=== PATIENT | male | born 1965 | race Caucasian/White ===

== ENCOUNTER 2017-11-07 18:07 | Inpatient (IN) | payer MEDICAID, OTHER ==
[~2017-11-07] VITALS: Ht 167.6 cm; Wt 114.8 kg
[2017-11-07] MEDS ORDERED: KETOROLAC TROMETH 30 MG/ML 1ML VIAL IV ONE (19:15)
[2017-11-07] MEDS ORDERED: CLINDAMYCIN 900MG IV 50 ML IV ONE (19:15)
[2017-11-07 19:39] LABS: Basophils # (auto) 0.1 uL; Basophils % (auto) 1.1 % (0.0-2.0); Eosinophils # (auto) 0.1 uL; Eosinophils % (auto) 1.1 % (0.0-7.0); Hematocrit 45.4 % (41.0-53.0); Lymphocytes # (auto) 1.3 uL; Lymphocytes % (auto) 17.7 % (10.0-50.0); Mean Corpuscular Hemoglobin 30.9 pg (28.0-32.0); Mean Corpuscular Hgb Conc. 33.1 g/dL (32.0-36.0); Mean Corpuscular Volume 93.4 fL (80.0-100.0); Monocytes # (auto) 0.9 uL; Monocytes % (auto) 12.4 % (0.0-12.0); Neutrophils # (auto) 5.1 uL; Neutrophils % (auto) 67.7 % (37.0-80.0); Nucleated Red Blood Cells % 0.1 %; Platelet Count (auto) 248 10^3/uL (140-450); Red Blood Cells 4.86 10^6/uL (4.5-5.90); Red Cell Distribution Width 14.1 % (11.8-14.3); White Blood Cell 7.6 10^3/uL (4.4-10.8)
[2017-11-07 20:00] LABS: Albumin 3.7 g/dL (3.4-5.0); BUN/Creatinine Ratio 16.7; Bilirubin, Total 1.1 mg/dL (0.2-1.0); Calcium 8.9 mg/dL (8.5-10.1); Potassium 4.5 mmol/L (3.5-5.1); Total Protein 7.9 g/dL (6.4-8.2)
[2017-11-07 21:49] LABS: Urine WBC None Seen /hpf (0 - 3)
[2017-11-07 21:54] LABS: Urine Bacteria NONE SEEN /hpf (None Seen); Urine Blood Negative /uL (Negative); Urine Specific Gravity 1.018 (1.001-1.035)
[2017-11-07] MEDS ORDERED: HYDROcodone-ACET 10/325MG TAB PO ONE (22:00)
[2017-11-07] MEDS ORDERED: ACETAMINOPHEN 325 MG TAB PO PRN (22:45)
[2017-11-07] MEDS ORDERED: TEMAZEPAM 15 MG CAP PO PRN (22:45)
[2017-11-07] MEDS ORDERED: ONDANSETRON HCL 4 MG/2 ML VIAL IV PRN (22:45)
[2017-11-08 01:06] VITALS: BP 116/76
[2017-11-08] MEDS: KETOROLAC TROMETH 30 MG/ML 1ML VIAL IV PRN ×2 (02:20→09:18)
[2017-11-08 05:42] VITALS: BP 124/86
[2017-11-08] MEDS: CLINDAMYCIN 600MG IV 50 ML IV SCH ×3 (05:42→22:14)
[2017-11-08 06:43] LABS: Basophils # (auto) 0.1 uL; Basophils % (auto) 0.9 % (0.0-2.0); Eosinophils # (auto) 0.1 uL; Eosinophils % (auto) 1.5 % (0.0-7.0); Hematocrit 41.7 % (41.0-53.0); Hemoglobin 14.2 g/dL (13.5-17.5); Lymphocytes # (auto) 1.6 uL; Mean Corpuscular Hemoglobin 31.7 pg (28.0-32.0); Mean Corpuscular Hgb Conc. 34.1 g/dL (32.0-36.0); Mean Corpuscular Volume 93.2 fL (80.0-100.0); Monocytes # (auto) 1.1 uL; Monocytes % (auto) 15.1 % (0.0-12.0); Neutrophils # (auto) 4.3 uL; Neutrophils % (auto) 60.5 % (37.0-80.0); Nucleated Red Blood Cells % 0.1 %; Platelet Count (auto) 221 10^3/uL (140-450); Red Blood Cells 4.47 10^6/uL (4.5-5.90); Red Cell Distribution Width 14.1 % (11.8-14.3); White Blood Cell 7.2 10^3/uL (4.4-10.8)
[2017-11-08 07:01] LABS: Potassium 3.9 mmol/L (3.5-5.1)
[2017-11-08 07:16] LABS: Albumin 3.1 g/dL (3.4-5.0); Calcium 8.8 mg/dL (8.5-10.1); Total Protein 7.1 g/dL (6.4-8.2)
[2017-11-08 07:30] LABS: Bilirubin, Total 1.5 mg/dL (0.2-1.0)
[2017-11-08 09:00] VITALS: BP 124/77
[2017-11-08] MEDS: FAMOTIDINE 20 MG TAB PO SCH ×2 (09:18→22:14)
[2017-11-08] MEDS: ENOXAPARIN SOD 40 MG/0.4 ML SYRINGE SC SCH (09:19)
[2017-11-08 17:00] VITALS: BP 122/74
[2017-11-08] MEDS: KETOROLAC TROMETH 30 MG/ML 1ML VIAL IV SCH (18:39)
[2017-11-08 22:00] VITALS: BP 122/81
[2017-11-08] MEDS: HYDROcodone-ACET 5/325MG TAB PO PRN (22:15)
[2017-11-09] MEDS: KETOROLAC TROMETH 30 MG/ML 1ML VIAL IV SCH ×4 (00:14→17:33)
[2017-11-09 05:00] VITALS: BP 120/75
[2017-11-09] MEDS: HYDROcodone-ACET 5/325MG TAB PO PRN ×2 (05:30→09:59)
[2017-11-09] MEDS: CLINDAMYCIN 600MG IV 50 ML IV SCH ×2 (05:46→14:34)
[2017-11-09 08:00] VITALS: BP 138/83
[2017-11-09] MEDS: ENOXAPARIN SOD 40 MG/0.4 ML SYRINGE SC SCH (09:58)
[2017-11-09] MEDS: FAMOTIDINE 20 MG TAB PO SCH (09:59)
[2017-11-09 12:00] VITALS: BP 104/59
[2017-11-09] MEDS ORDERED: GABA-339 PO (16:20)
[2017-11-09] MEDS ORDERED: HYDR-4683 PO (16:20)
[2017-11-09] MEDS ORDERED: BACL20TA PO (16:20)
[2017-11-09 17:00] VITALS: BP 122/84
[2017-11-09 17:58] VITALS: BP 122/84
[2017-11-09 18:10] VITALS: BP 122/84
== END 2017-11-09 18:30 | disposition home or self-care (01) | DRG 351 ==
LOC: ER 18:07 → OVERFLOW 18:08 → WEST WING 23:10
PROVIDERS: ADMIT Nurse Practitioner; ATTEND Internal Medicine Pulmonary Disease
DX: M17.12 Unilateral primary osteoarthritis, left knee (principal); E66.01 Morbid (severe) obesity due to excess calories; G62.9 Polyneuropathy, unspecified; Z98.84 Bariatric surgery status; G89.29 Other chronic pain; Z68.32 Body mass index [BMI] 32.0-32.9, adult
CPT/HCPCS: 36415; 73562; 80053; 81001; 85025; 85652; 86141; 86431; 87040; 87081; 93971; 96365; 96366; 96372; 96375; 96376; J1885; J3490

== ENCOUNTER 2019-03-01 22:14 | Emergency (ER) | payer MEDICAID ==
[~2019-03-01] VITALS: Ht 170.2 cm; Wt 104.3 kg
[~2019-03-01 22:14] MED LIST: BACL20TA PO; GABA-339 PO; HYDR-4833 PO
[2019-03-01 23:23] LABS: Basophils # (auto) 0.1 uL; Basophils % (auto) 1.2 % (0.0-2.0); Eosinophils # (auto) 0.1 uL; Hemoglobin 15.8 g/dL (13.5-17.5); Lymphocytes # (auto) 1.7 uL; Lymphocytes % (auto) 28.5 % (10.0-50.0); Mean Corpuscular Hgb Conc. 32.8 g/dL (32.0-36.0); Mean Corpuscular Volume 97.4 fL (80.0-100.0); Monocytes % (auto) 17.1 % (0.0-12.0); Neutrophils % (auto) 52.2 % (37.0-80.0); Nucleated Red Blood Cells % 0.1 %; Platelet Count (auto) 241 10^3/uL (140-450); Red Blood Cells 4.93 10^6/uL (4.5-5.90); Red Cell Distribution Width 15.1 % (11.8-14.3); White Blood Cell 5.8 10^3/uL (4.4-10.8)
[2019-03-01 23:43] LABS: BUN/Creatinine Ratio 11.4; Calcium 8.4 mg/dL (8.5-10.1); Potassium 4.2 mmol/L (3.5-5.1)
[2019-03-01 23:46] LABS: Bilirubin, Total 0.5 mg/dL (0.2-1.0); Total Protein 6.7 g/dL (6.4-8.2)
[2019-03-02 03:15] VITALS: BP 114/79
[2019-03-02] MEDS ORDERED: HYDROcodone-ACET 10/325MG TAB ONE (03:36)
[2019-03-02] MEDS ORDERED: ONDANSETRON HCL 4 MG/2 ML VIAL IV ONE (03:45)
[2019-03-02] MEDS ORDERED: HYDROmorphone HCL 2 MG/ML VL IV ONE (03:45)
[2019-03-02] MEDS ORDERED: HYDROcodone-ACET 10/325MG TAB PO ONE (03:45)
== END 2019-03-02 04:16 | disposition home or self-care (01) ==
LOC: ER 22:22
DX: S86.011A Strain of right Achilles tendon, initial encounter (principal); Z88.0 Allergy status to penicillin; Z79.899 Other long term (current) drug therapy; X58.XXXA Exposure to other specified factors, initial encounter; Y93.89 Activity, other specified; Y99.8 Other external cause status; Y92.89 Other specified places as the place of occurrence of the external cause
CPT/HCPCS: 36415; 72131; 73700; 80053; 80320; 85025; 96374; 96375; 99284; J1170; J2405

== ENCOUNTER 2019-06-01 19:56 | Emergency (ER) | payer MEDICAID ==
[~2019-06-01] VITALS: Ht 167.6 cm; Wt 99.8 kg
[2019-06-01 20:07] VITALS: BP 118/82
[2019-06-01] MEDS ORDERED: MVI in SODIUM CHLORIDE 0.9% 1,010 ML IV ONE (20:16)
[2019-06-01] MEDS ORDERED: THIAMINE 100mg/ml INJ (200mg/2ml VIAL) IV ONE (20:30)
== END 2019-06-01 21:20 | disposition left against medical advice (07) ==
LOC: EDBD 19:56 → ER 19:56
DX: F10.10 Alcohol abuse, uncomplicated (principal); Z53.21 Procedure and treatment not carried out due to patient leaving prior to being seen by health care provider
CPT/HCPCS: J3411; J3475; 96361; 96374

== ENCOUNTER 2022-05-29 13:10 | Inpatient (IN) | payer MEDICAID ==
[~2022-05-29] VITALS: Ht 172.7 cm; Wt 112.4 kg
[2022-05-29] MEDS ORDERED: METOCLOPRAMIDE HCL 5MG/ml INJ 2ml VIAL IV ONE (13:45)
[2022-05-29] MEDS ORDERED: HYDROmorphone HCL 2 MG/ML VL/or syr IV ONE (13:45)
[2022-05-29] MEDS ORDERED: SODIUM CHLORIDE 0.9% 500 ML IV ONE (13:45)
[2022-05-29] MEDS ORDERED: SODIUM CHLORIDE 0.9% 1,000 ML IV ONE (13:45)
[2022-05-29 15:09] LABS: Eosinophils # (auto) 0.1 10 ^3/uL (0-0.8); Monocytes # (auto) 0.5 10 ^3/uL (0-1.3); Neutrophils # (auto) 5.4 10 ^3/uL (1.6-8.6)
[2022-05-29 15:12] LABS: Basophils # (auto) 0.2 10 ^3/uL (0-0.2); Basophils % (auto) 1.9 % (0.0-2.0); Eosinophils % (auto) 1.4 % (0.0-7.0); Hemoglobin 12.5 g/dL (13.5-17.5); Lymphocytes % (auto) 32.5 % (10.0-50.0); Mean Corpuscular Hgb Conc. 31.3 g/dL (32.0-36.0); Mean Corpuscular Volume 79.8 fL (80.0-100.0); Monocytes % (auto) 5.6 % (0.0-12.0); Neutrophils % (auto) 58.6 % (37.0-80.0); Nucleated Red Blood Cells % 0.2 %; Red Blood Cells 5.01 10^6/uL (4.5-5.90); Red Cell Distribution Width 19.8 % (11.8-14.3); White Blood Cell 9.2 10^3/uL (4.4-10.8)
[2022-05-29 15:28] LABS: INR 0.99 (0.9-1.15); Partial Thromboplastin Time 27.3 sec (24.6-33.4)
[2022-05-29 15:29] LABS: Albumin 2.7 g/dL (3.4-5.0); Calcium 8.1 mg/dL (8.5-10.1); Magnesium 2.2 mg/dL (1.6-2.6); Potassium 3.5 mmol/L (3.5-5.1)
[2022-05-29 15:33] LABS: BUN/Creatinine Ratio 12.9; Bilirubin, Total 0.4 mg/dL (0.2-1.0); Total Protein 6.3 g/dL (6.4-8.2)
[2022-05-29 21:14] LABS: Cholesterol 172 mg/dL (< 200); HDL Cholesterol 65 mg/dL (40-59); LDL Cholesterol 91 mg/dL (< 100); Triglycerides 150 mg/dL (< 150)
[2022-05-29] MEDS: SODIUM CHLORIDE 0.9% 1,000 ML IV SCH (21:17)
[2022-05-29] MEDS: HYDROcodone-ACET 5/325MG TAB PO PRN (21:17)
[2022-05-29] MEDS: ASCORBIC ACID 500 MG TAB PO SCH (22:02)
[2022-05-29] MEDS: HEPARIN SODIUM (PORCINE) 5000 UNITS/ML 1ML VIAL SC SCH (22:03)
[2022-05-29] MEDS ORDERED: ZOLPIDEM TARTRATE 5 MG TAB PO PRN (23:45)
[2022-05-30] MEDS: HYDROcodone-ACET 5/325MG TAB PO PRN ×4 (01:41→19:59)
[2022-05-30 06:49] LABS: Albumin 2.2 g/dL (3.4-5.0); Calcium 7.8 mg/dL (8.5-10.1); Potassium 4.4 mmol/L (3.5-5.1)
[2022-05-30 06:55] LABS: BUN/Creatinine Ratio 16.9; Bilirubin, Total 1.3 mg/dL (0.2-1.0); Total Protein 5.5 g/dL (6.4-8.2)
[2022-05-30 07:07] LABS: Basophils # (auto) 0.1 10 ^3/uL (0-0.2); Eosinophils # (auto) 0.2 10 ^3/uL (0-0.8); Eosinophils % (auto) 3.8 % (0.0-7.0); Monocytes # (auto) 0.7 10 ^3/uL (0-1.3); Neutrophils # (auto) 3.2 10 ^3/uL (1.6-8.6); Nucleated Red Blood Cells % 0.1 %; Red Blood Cells 4.32 10^6/uL (4.5-5.90); White Blood Cell 6.2 10^3/uL (4.4-10.8)
[2022-05-30 07:11] LABS: Basophils % (auto) 1.9 % (0.0-2.0); Hematocrit 34.4 % (41.0-53.0); Hemoglobin 10.8 g/dL (13.5-17.5); Lymphocytes % (auto) 32.3 % (10.0-50.0); Mean Corpuscular Hemoglobin 24.9 pg (28.0-32.0); Mean Corpuscular Hgb Conc. 31.3 g/dL (32.0-36.0); Mean Corpuscular Volume 79.7 fL (80.0-100.0); Monocytes % (auto) 10.5 % (0.0-12.0); Neutrophils % (auto) 51.5 % (37.0-80.0)
[2022-05-30 07:20] LABS: Red Cell Distribution Width 20.4 % (11.8-14.3)
[2022-05-30] MEDS: MULTIPLE VITAMIN TAB PO SCH (10:08)
[2022-05-30] MEDS: ZINC SULFATE 220mg CAP or TAB PO SCH (10:08)
[2022-05-30] MEDS: ASCORBIC ACID 500 MG TAB PO SCH ×2 (10:08→22:05)
[2022-05-30] MEDS: HEPARIN SODIUM (PORCINE) 5000 UNITS/ML 1ML VIAL SC SCH ×2 (10:09→22:11)
[2022-05-30] MEDS: SODIUM CHLORIDE 0.9% 1,000 ML IV SCH (12:41)
[2022-05-30] MEDS: HYDROmorphone HCL 2 MG/ML VL/or syr IV PRN ×3 (13:55→22:08)
[2022-05-30 16:00] VITALS: BP 157/93
[2022-05-30] MEDS ORDERED: GABA800T97 PO (16:12)
[2022-05-30] MEDS ORDERED: MORP15TA PO (16:12)
[2022-05-30] MEDS ORDERED: SECU1INJ SC (16:12)
[2022-05-30] MEDS ORDERED: APIX5TAB PO (16:12)
[2022-05-30] MEDS ORDERED: DULO1CAP5 PO (16:12)
[2022-05-30] MEDS ORDERED: CYCL-611 PO (16:12)
[2022-05-30 16:39] VITALS: BP 157/93
[2022-05-30] MEDS ORDERED: SENNA 8.6 MG TAB PO PRN (17:15)
[2022-05-30] MEDS ORDERED: POLYETHYLENE GLYCOL 17 GM PWDR PO PRN (17:15)
[2022-05-30 20:00] VITALS: BP 120/73
[2022-05-30 22:00] VITALS: BP 120/70
[2022-05-30] MEDS: GABAPENTIN 400 MG CAP PO SCH (22:05)
[2022-05-30] MEDS: SENNA 8.6 MG TAB PO SCH (22:05)
[2022-05-31] MEDS: HYDROcodone-ACET 5/325MG TAB PO PRN ×3 (00:29→22:04)
[2022-05-31] MEDS: HYDROmorphone HCL 2 MG/ML VL/or syr IV PRN ×5 (02:15→18:26)
[2022-05-31 05:00] VITALS: BP 139/92
[2022-05-31] MEDS: SODIUM CHLORIDE 0.9% 1,000 ML IV SCH (05:12)
[2022-05-31] MEDS: ACETAMINOPHEN 325 MG TAB PO PRN ×2 (07:44→18:32)
[2022-05-31 08:00] VITALS: BP 145/98
[2022-05-31] MEDS ORDERED: ROPIVACAINE 0.5% (5MG/ML) 20ML AMPULE IJ ONE (08:29)
[2022-05-31] MEDS ORDERED: ENOXAPARIN SOD 120 MG/0.8 ML SYRINGE SC ONE (10:45)
[2022-05-31] MEDS: MULTIPLE VITAMIN TAB PO SCH (11:10)
[2022-05-31] MEDS: ASCORBIC ACID 500 MG TAB PO SCH ×2 (11:11→22:03)
[2022-05-31] MEDS: GABAPENTIN 400 MG CAP PO SCH ×2 (11:11→22:03)
[2022-05-31] MEDS: POLYETHYLENE GLYCOL 17 GM PWDR PO SCH (11:11)
[2022-05-31 11:12] LABS: Eosinophils # (auto) 0 10 ^3/uL (0-0.8); Eosinophils % (auto) 0.1 % (0.0-7.0); Hemoglobin 11.1 g/dL (13.5-17.5)
[2022-05-31 11:13] LABS: Basophils # (auto) 0.2 10 ^3/uL (0-0.2); Basophils % (auto) 1.5 % (0.0-2.0); Hematocrit 36.4 % (41.0-53.0); Lymphocytes # (auto) 1.4 10 ^3/uL (0.4-5.4); Lymphocytes % (auto) 9.5 % (10.0-50.0); Mean Corpuscular Hemoglobin 24.1 pg (28.0-32.0); Mean Corpuscular Hgb Conc. 30.4 g/dL (32.0-36.0); Mean Corpuscular Volume 79.4 fL (80.0-100.0); Monocytes # (auto) 1.1 10 ^3/uL (0-1.3); Monocytes % (auto) 7.6 % (0.0-12.0); Neutrophils # (auto) 12.2 10 ^3/uL (1.6-8.6); Neutrophils % (auto) 81.3 % (37.0-80.0); Nucleated Red Blood Cells % 0.1 %; Red Blood Cells 4.59 10^6/uL (4.5-5.90); White Blood Cell 15.1 10^3/uL (4.4-10.8)
[2022-05-31 11:22] LABS: Red Cell Distribution Width 20.1 % (11.8-14.3)
[2022-05-31 11:29] LABS: Albumin 2.2 g/dL (3.4-5.0); BUN/Creatinine Ratio 10.2; Calcium 8.3 mg/dL (8.5-10.1); Potassium 3.9 mmol/L (3.5-5.1)
[2022-05-31 11:31] LABS: Bilirubin, Total 2.2 mg/dL (0.2-1.0); Total Protein 5.9 g/dL (6.4-8.2)
[2022-05-31] MEDS: ZINC SULFATE 220mg CAP or TAB PO SCH (11:45)
[2022-05-31 12:00] VITALS: BP 129/80
[2022-05-31 16:00] VITALS: BP 124/76
[2022-05-31 22:00] VITALS: BP 112/61
[2022-05-31] MEDS: ENOXAPARIN SOD 120 MG/0.8 ML SYRINGE SC SCH (22:03)
[2022-05-31] MEDS: SENNA 8.6 MG TAB PO SCH (22:04)
[2022-05-31 23:10] LABS: Urine Blood Negative /uL (Negative); Urine Specific Gravity 1.013 (1.001-1.035)
[2022-06-01] MEDS: HYDROmorphone HCL 2 MG/ML VL/or syr IV PRN ×5 (01:00→22:22)
[2022-06-01 05:00] VITALS: BP 93/75
[2022-06-01] MEDS: ACETAMINOPHEN 325 MG TAB PO PRN (05:24)
[2022-06-01 07:58] LABS: Basophils # (auto) 0.1 10 ^3/uL (0-0.2); Hemoglobin 10.2 g/dL (13.5-17.5); Lymphocytes # (auto) 1.5 10 ^3/uL (0.4-5.4); Mean Corpuscular Volume 79.5 fL (80.0-100.0); Monocytes # (auto) 1.2 10 ^3/uL (0-1.3); Neutrophils # (auto) 7.7 10 ^3/uL (1.6-8.6)
[2022-06-01 08:01] LABS: Basophils % (auto) 1.1 % (0.0-2.0); Eosinophils # (auto) 0 10 ^3/uL (0-0.8); Eosinophils % (auto) 0.4 % (0.0-7.0); Hematocrit 32.4 % (41.0-53.0); Lymphocytes % (auto) 14.6 % (10.0-50.0); Mean Corpuscular Hgb Conc. 31.5 g/dL (32.0-36.0); Monocytes % (auto) 11.2 % (0.0-12.0); Neutrophils % (auto) 72.7 % (37.0-80.0); Red Blood Cells 4.07 10^6/uL (4.5-5.90); Red Cell Distribution Width 19.4 % (11.8-14.3); White Blood Cell 10.6 10^3/uL (4.4-10.8)
[2022-06-01 08:09] LABS: Potassium 4.2 mmol/L (3.5-5.1)
[2022-06-01 08:23] LABS: Albumin 2.1 g/dL (3.4-5.0); BUN/Creatinine Ratio 15.1; Bilirubin, Total 2.2 mg/dL (0.2-1.0); Calcium 7.9 mg/dL (8.5-10.1); Total Protein 5.2 g/dL (6.4-8.2)
[2022-06-01] MEDS: HYDROcodone-ACET 5/325MG TAB PO PRN (08:49)
[2022-06-01] MEDS: ENOXAPARIN SOD 120 MG/0.8 ML SYRINGE SC SCH ×2 (08:50→22:21)
[2022-06-01] MEDS: POLYETHYLENE GLYCOL 17 GM PWDR PO SCH (08:50)
[2022-06-01] MEDS: ZINC SULFATE 220mg CAP or TAB PO SCH (08:50)
[2022-06-01] MEDS: GABAPENTIN 400 MG CAP PO SCH ×2 (08:50→22:20)
[2022-06-01] MEDS: MULTIPLE VITAMIN TAB PO SCH (08:50)
[2022-06-01 09:00] VITALS: BP 108/69
[2022-06-01] MEDS: ASCORBIC ACID 500 MG TAB PO SCH ×2 (10:11→22:21)
[2022-06-01 13:00] VITALS: BP 120/75
[2022-06-01 17:00] VITALS: BP 120/73
[2022-06-01 20:00] VITALS: BP 105/75
[2022-06-01 22:00] VITALS: BP 105/75
[2022-06-01] MEDS: SENNA 8.6 MG TAB PO SCH (22:36)
[2022-06-01] MEDS ORDERED: diphenhdrAMINE HCL 25 MG CAP PO ONE (23:30)
[2022-06-01] MEDS ORDERED: IBUPROFEN 600 MG TAB PO ONE (23:30)
[2022-06-02] VITALS (7 sets, daily range): BP systolic 94–156; BP diastolic 61–98
[2022-06-02 00:51] LABS: Urine Bacteria NONE SEEN /hpf (None Seen); Urine Blood Negative /uL (Negative); Urine Specific Gravity 1.014 (1.001-1.035); Urine WBC <1 /hpf (0 - 3)
[2022-06-02] MEDS: HYDROmorphone HCL 2 MG/ML VL/or syr IV PRN ×5 (05:00→21:51)
[2022-06-02 06:30] LABS: Calcium 8.7 mg/dL (8.5-10.1); Potassium 3.8 mmol/L (3.5-5.1)
[2022-06-02 06:32] LABS: BUN/Creatinine Ratio 12.9; Basophils # (auto) 0.1 10 ^3/uL (0-0.2); Basophils % (auto) 0.9 % (0.0-2.0); Eosinophils # (auto) 0.1 10 ^3/uL (0-0.8); Mean Corpuscular Volume 80.7 fL (80.0-100.0); Monocytes # (auto) 1.5 10 ^3/uL (0-1.3)
[2022-06-02 06:35] LABS: Eosinophils % (auto) 0.8 % (0.0-7.0); Hematocrit 34.4 % (41.0-53.0); Hemoglobin 10.7 g/dL (13.5-17.5); Lymphocytes # (auto) 2.2 10 ^3/uL (0.4-5.4); Lymphocytes % (auto) 21.5 % (10.0-50.0); Mean Corpuscular Hemoglobin 25.1 pg (28.0-32.0); Mean Corpuscular Hgb Conc. 31.2 g/dL (32.0-36.0); Monocytes % (auto) 15.4 % (0.0-12.0); Neutrophils # (auto) 6.2 10 ^3/uL (1.6-8.6); Neutrophils % (auto) 61.4 % (37.0-80.0); Red Blood Cells 4.27 10^6/uL (4.5-5.90); Red Cell Distribution Width 19.9 % (11.8-14.3); White Blood Cell 10.1 10^3/uL (4.4-10.8)
[2022-06-02 06:45] LABS: Bilirubin, Total 2.7 mg/dL (0.2-1.0); Total Protein 6.2 g/dL (6.4-8.2)
[2022-06-02] MEDS ORDERED: VANCOMYCIN PER PHARMACY 0 MG IV SCH (09:30)
[2022-06-02] MEDS: POLYETHYLENE GLYCOL 17 GM PWDR PO SCH (10:00)
[2022-06-02] MEDS: GABAPENTIN 400 MG CAP PO SCH ×2 (10:17→21:49)
[2022-06-02] MEDS: ENOXAPARIN SOD 120 MG/0.8 ML SYRINGE SC SCH ×2 (10:17→21:49)
[2022-06-02] MEDS: ZINC SULFATE 220mg CAP or TAB PO SCH (10:17)
[2022-06-02] MEDS: MULTIPLE VITAMIN TAB PO SCH (10:17)
[2022-06-02] MEDS: ASCORBIC ACID 500 MG TAB PO SCH ×2 (10:17→21:50)
[2022-06-02] MEDS ORDERED: VANCOMYCIN 1GM/250ML 250 ML IV ONE (10:45)
[2022-06-02] MEDS: VANCOMYCIN 1GM/250ML 250 ML IV SCH (17:54)
[2022-06-02] MEDS: SENNA 8.6 MG TAB PO SCH (21:50)
[2022-06-02] MEDS: HYDROcodone-ACET 5/325MG TAB PO PRN (23:15)
[2022-06-03] VITALS (7 sets, daily range): BP systolic 98–135; BP diastolic 62–81
[2022-06-03] MEDS: HYDROmorphone HCL 2 MG/ML VL/or syr IV PRN ×6 (01:56→21:21)
[2022-06-03] MEDS: VANCOMYCIN 1GM/250ML 250 ML IV SCH (02:09)
[2022-06-03 07:03] LABS: Potassium 3.9 mmol/L (3.5-5.1)
[2022-06-03 07:04] LABS: Basophils # (auto) 0.1 10 ^3/uL (0-0.2); Eosinophils # (auto) 0.2 10 ^3/uL (0-0.8); Eosinophils % (auto) 2.2 % (0.0-7.0); Hematocrit 29.1 % (41.0-53.0); Hemoglobin 9.6 g/dL (13.5-17.5); Lymphocytes # (auto) 1.5 10 ^3/uL (0.4-5.4); Lymphocytes % (auto) 18.7 % (10.0-50.0); Mean Corpuscular Hemoglobin 26.2 pg (28.0-32.0); Mean Corpuscular Volume 79.5 fL (80.0-100.0); Monocytes # (auto) 1.3 10 ^3/uL (0-1.3); Monocytes % (auto) 15.6 % (0.0-12.0); Neutrophils % (auto) 62.5 % (37.0-80.0); Red Blood Cells 3.67 10^6/uL (4.5-5.90); Red Cell Distribution Width 19.8 % (11.8-14.3)
[2022-06-03 07:09] LABS: Albumin 1.9 g/dL (3.4-5.0); BUN/Creatinine Ratio 19.2; Bilirubin, Total 1.7 mg/dL (0.2-1.0); Calcium 7.8 mg/dL (8.5-10.1); Total Protein 5.2 g/dL (6.4-8.2)
[2022-06-03] MEDS: GABAPENTIN 400 MG CAP PO SCH ×2 (10:51→21:22)
[2022-06-03] MEDS: ZINC SULFATE 220mg CAP or TAB PO SCH (10:51)
[2022-06-03] MEDS: MULTIPLE VITAMIN TAB PO SCH (10:51)
[2022-06-03] MEDS: ASCORBIC ACID 500 MG TAB PO SCH ×2 (10:51→21:22)
[2022-06-03] MEDS: POLYETHYLENE GLYCOL 17 GM PWDR PO SCH (10:52)
[2022-06-03] MEDS: ENOXAPARIN SOD 120 MG/0.8 ML SYRINGE SC SCH ×2 (10:52→21:21)
[2022-06-03] MEDS: SENNA 8.6 MG TAB PO SCH (21:21)
[2022-06-04] VITALS (7 sets, daily range): BP systolic 107–126; BP diastolic 64–80
[2022-06-04] MEDS: HYDROmorphone HCL 2 MG/ML VL/or syr IV PRN ×5 (04:31→18:57)
[2022-06-04 06:00] LABS: Eosinophils # (auto) 0.1 10 ^3/uL (0-0.8); Hemoglobin 8.6 g/dL (13.5-17.5); Lymphocytes # (auto) 1.5 10 ^3/uL (0.4-5.4)
[2022-06-04 06:02] LABS: Basophils # (auto) 0 10 ^3/uL (0-0.2); Basophils % (auto) 0.8 % (0.0-2.0); Hematocrit 27.1 % (41.0-53.0); Lymphocytes % (auto) 25.2 % (10.0-50.0); Mean Corpuscular Hgb Conc. 31.6 g/dL (32.0-36.0); Mean Corpuscular Volume 79.1 fL (80.0-100.0); Monocytes # (auto) 1.1 10 ^3/uL (0-1.3); Monocytes % (auto) 17.3 % (0.0-12.0); Neutrophils # (auto) 3.4 10 ^3/uL (1.6-8.6); Neutrophils % (auto) 54.7 % (37.0-80.0); Red Blood Cells 3.43 10^6/uL (4.5-5.90); Red Cell Distribution Width 19.8 % (11.8-14.3); White Blood Cell 6.1 10^3/uL (4.4-10.8)
[2022-06-04 06:09] LABS: Albumin 1.6 g/dL (3.4-5.0); BUN/Creatinine Ratio 13.8; Potassium 3.6 mmol/L (3.5-5.1)
[2022-06-04 06:13] LABS: Bilirubin, Total 1.2 mg/dL (0.2-1.0); Total Protein 5.6 g/dL (6.4-8.2)
[2022-06-04] MEDS: ASCORBIC ACID 500 MG TAB PO SCH ×2 (08:17→22:11)
[2022-06-04] MEDS: MULTIPLE VITAMIN TAB PO SCH (08:17)
[2022-06-04] MEDS: ZINC SULFATE 220mg CAP or TAB PO SCH (08:17)
[2022-06-04] MEDS: POLYETHYLENE GLYCOL 17 GM PWDR PO SCH (10:00)
[2022-06-04] MEDS: GABAPENTIN 400 MG CAP PO SCH ×2 (10:53→22:10)
[2022-06-04] MEDS: ENOXAPARIN SOD 120 MG/0.8 ML SYRINGE SC SCH ×2 (10:54→22:09)
[2022-06-04] MEDS: SENNA 8.6 MG TAB PO SCH (22:09)
[2022-06-04] MEDS: HYDROcodone-ACET 10/325MG TAB PO SCH (22:10)
[2022-06-05] MEDS: HYDROmorphone HCL 2 MG/ML VL/or syr IV PRN ×7 (01:10→21:03)
[2022-06-05 05:00] VITALS: BP 117/54
[2022-06-05 06:36] LABS: Basophils # (auto) 0.1 10 ^3/uL (0-0.2); Eosinophils # (auto) 0.1 10 ^3/uL (0-0.8); Lymphocytes # (auto) 1.8 10 ^3/uL (0.4-5.4); Monocytes # (auto) 1.3 10 ^3/uL (0-1.3)
[2022-06-05 06:38] LABS: Basophils % (auto) 0.9 % (0.0-2.0); Eosinophils % (auto) 1.7 % (0.0-7.0); Hematocrit 27.6 % (41.0-53.0); Hemoglobin 8.6 g/dL (13.5-17.5); Lymphocytes % (auto) 23.2 % (10.0-50.0); Mean Corpuscular Hemoglobin 24.9 pg (28.0-32.0); Mean Corpuscular Volume 80.3 fL (80.0-100.0); Monocytes % (auto) 16.8 % (0.0-12.0); Neutrophils # (auto) 4.5 10 ^3/uL (1.6-8.6); Neutrophils % (auto) 57.4 % (37.0-80.0); Red Blood Cells 3.44 10^6/uL (4.5-5.90); White Blood Cell 7.8 10^3/uL (4.4-10.8)
[2022-06-05 06:48] LABS: Red Cell Distribution Width 20.1 % (11.8-14.3)
[2022-06-05 06:56] LABS: Albumin 1.6 g/dL (3.4-5.0); Calcium 8.1 mg/dL (8.5-10.1); Potassium 4.1 mmol/L (3.5-5.1)
[2022-06-05 07:01] LABS: Bilirubin, Total 1.3 mg/dL (0.2-1.0); Total Protein 5.9 g/dL (6.4-8.2)
[2022-06-05 08:00] VITALS: BP 126/74
[2022-06-05 09:00] VITALS: BP 118/67
[2022-06-05] MEDS: ASCORBIC ACID 500 MG TAB PO SCH ×2 (10:14→21:59)
[2022-06-05] MEDS: ZINC SULFATE 220mg CAP or TAB PO SCH (10:14)
[2022-06-05] MEDS: GABAPENTIN 400 MG CAP PO SCH ×2 (10:14→21:55)
[2022-06-05] MEDS: POLYETHYLENE GLYCOL 17 GM PWDR PO SCH (10:15)
[2022-06-05] MEDS: MULTIPLE VITAMIN TAB PO SCH (10:15)
[2022-06-05] MEDS: ENOXAPARIN SOD 120 MG/0.8 ML SYRINGE SC SCH ×2 (10:15→21:59)
[2022-06-05] MEDS: HYDROcodone-ACET 10/325MG TAB PO SCH ×2 (10:16→22:49)
[2022-06-05 13:00] VITALS: BP 113/63
[2022-06-05 17:00] VITALS: BP 124/72
[2022-06-05] MEDS: SENNA 8.6 MG TAB PO SCH (21:58)
[2022-06-05 22:00] VITALS: BP 116/68
[2022-06-06 05:00] VITALS: BP 115/74
[2022-06-06 05:57] LABS: Basophils # (auto) 0.1 10 ^3/uL (0-0.2); Eosinophils # (auto) 0.2 10 ^3/uL (0-0.8); Hemoglobin 8.6 g/dL (13.5-17.5)
[2022-06-06 06:00] LABS: Eosinophils % (auto) 2.8 % (0.0-7.0); Hematocrit 27.9 % (41.0-53.0); Lymphocytes # (auto) 1.5 10 ^3/uL (0.4-5.4); Lymphocytes % (auto) 22.6 % (10.0-50.0); Mean Corpuscular Volume 80.6 fL (80.0-100.0); Monocytes # (auto) 1.1 10 ^3/uL (0-1.3); Monocytes % (auto) 15.6 % (0.0-12.0); Neutrophils # (auto) 3.9 10 ^3/uL (1.6-8.6); Red Blood Cells 3.46 10^6/uL (4.5-5.90); Red Cell Distribution Width 19.9 % (11.8-14.3); White Blood Cell 6.8 10^3/uL (4.4-10.8)
[2022-06-06 06:16] LABS: Albumin 1.7 g/dL (3.4-5.0); Calcium 8.3 mg/dL (8.5-10.1); Potassium 4.4 mmol/L (3.5-5.1)
[2022-06-06 06:20] LABS: BUN/Creatinine Ratio 15.9
[2022-06-06] MEDS: HYDROmorphone HCL 2 MG/ML VL/or syr IV PRN ×4 (08:49→21:30)
[2022-06-06 09:00] VITALS: BP 125/77
[2022-06-06] MEDS: POLYETHYLENE GLYCOL 17 GM PWDR PO SCH (10:00)
[2022-06-06] MEDS: ENOXAPARIN SOD 120 MG/0.8 ML SYRINGE SC SCH ×2 (10:48→21:42)
[2022-06-06] MEDS: HYDROcodone-ACET 10/325MG TAB PO SCH (10:49)
[2022-06-06] MEDS: GABAPENTIN 400 MG CAP PO SCH ×2 (10:49→21:42)
[2022-06-06] MEDS: MULTIPLE VITAMIN TAB PO SCH (10:49)
[2022-06-06] MEDS: ZINC SULFATE 220mg CAP or TAB PO SCH (10:50)
[2022-06-06] MEDS: ASCORBIC ACID 500 MG TAB PO SCH ×2 (10:50→21:42)
[2022-06-06 13:00] VITALS: BP 115/82
[2022-06-06 17:00] VITALS: BP 118/71
[2022-06-06] MEDS: SENNA 8.6 MG TAB PO SCH (21:42)
[2022-06-06 22:00] VITALS: BP 116/77
[2022-06-07] MEDS: HYDROmorphone HCL 2 MG/ML VL/or syr IV PRN ×6 (01:08→20:44)
[2022-06-07] MEDS: HYDROcodone-ACET 10/325MG TAB PO SCH ×3 (02:22→22:30)
[2022-06-07 05:00] VITALS: BP 117/77
[2022-06-07 06:32] LABS: Albumin 1.7 g/dL (3.4-5.0); Calcium 8.3 mg/dL (8.5-10.1); Potassium 3.9 mmol/L (3.5-5.1)
[2022-06-07 06:34] LABS: BUN/Creatinine Ratio 16.9
[2022-06-07 06:37] LABS: Bilirubin, Total 0.7 mg/dL (0.2-1.0)
[2022-06-07 07:21] LABS: Basophils # (auto) 0.1 10 ^3/uL (0-0.2); Eosinophils # (auto) 0.2 10 ^3/uL (0-0.8); Monocytes # (auto) 0.9 10 ^3/uL (0-1.3)
[2022-06-07 07:27] LABS: Eosinophils % (auto) 2.3 % (0.0-7.0); Hematocrit 27.7 % (41.0-53.0); Hemoglobin 9.1 g/dL (13.5-17.5); Lymphocytes # (auto) 1.6 10 ^3/uL (0.4-5.4); Lymphocytes % (auto) 24.2 % (10.0-50.0); Mean Corpuscular Hemoglobin 26.4 pg (28.0-32.0); Mean Corpuscular Hgb Conc. 32.9 g/dL (32.0-36.0); Mean Corpuscular Volume 80.2 fL (80.0-100.0); Monocytes % (auto) 14.2 % (0.0-12.0); Neutrophils # (auto) 3.8 10 ^3/uL (1.6-8.6); Neutrophils % (auto) 58.3 % (37.0-80.0); Red Blood Cells 3.45 10^6/uL (4.5-5.90); Red Cell Distribution Width 19.6 % (11.8-14.3); White Blood Cell 6.5 10^3/uL (4.4-10.8)
[2022-06-07 08:55] VITALS: BP 113/79
[2022-06-07] MEDS: POLYETHYLENE GLYCOL 17 GM PWDR PO SCH (10:00)
[2022-06-07] MEDS: ZINC SULFATE 220mg CAP or TAB PO SCH (11:15)
[2022-06-07] MEDS: GABAPENTIN 400 MG CAP PO SCH ×2 (11:16→22:28)
[2022-06-07] MEDS: ASCORBIC ACID 500 MG TAB PO SCH ×2 (11:16→22:29)
[2022-06-07] MEDS: MULTIPLE VITAMIN TAB PO SCH (11:16)
[2022-06-07] MEDS: ENOXAPARIN SOD 120 MG/0.8 ML SYRINGE SC SCH ×2 (11:17→22:33)
[2022-06-07 13:21] VITALS: BP 137/85
[2022-06-07 16:53] VITALS: BP 111/75
[2022-06-07 22:00] VITALS: BP 108/71
[2022-06-07] MEDS: SENNA 8.6 MG TAB PO SCH (22:29)
[2022-06-08] MEDS: HYDROmorphone HCL 2 MG/ML VL/or syr IV PRN ×5 (00:36→18:20)
[2022-06-08 05:00] VITALS: BP 117/71
[2022-06-08 09:00] VITALS: BP 117/73
[2022-06-08] MEDS: MULTIPLE VITAMIN TAB PO SCH (09:40)
[2022-06-08] MEDS: ASCORBIC ACID 500 MG TAB PO SCH (09:40)
[2022-06-08] MEDS: HYDROcodone-ACET 10/325MG TAB PO SCH (09:40)
[2022-06-08] MEDS: GABAPENTIN 400 MG CAP PO SCH (09:40)
[2022-06-08] MEDS: ZINC SULFATE 220mg CAP or TAB PO SCH (09:41)
[2022-06-08] MEDS: POLYETHYLENE GLYCOL 17 GM PWDR PO SCH ×2 (09:42→09:44)
[2022-06-08] MEDS: ENOXAPARIN SOD 120 MG/0.8 ML SYRINGE SC SCH (11:41)
[2022-06-08 13:00] VITALS: BP 122/77
[2022-06-08 17:00] VITALS: BP 107/62
[2022-06-08 17:11] VITALS: BP 117/70
[2022-06-08 18:50] VITALS: BP 115/69
== END 2022-06-08 19:30 | disposition short-term general hospital (02) | DRG 342 ==
LOC: EDBD 13:10 → ER 13:17 → OVERFLOW 19:59 → EAST 05-30 15:07
PROVIDERS: ADMIT Nurse Practitioner Family; ATTEND Internal Medicine Pulmonary Disease
DX: S82.102A Unspecified fracture of upper end of left tibia, initial encounter for closed fracture (principal); G72.41 Inclusion body myositis [IBM]; E46 Unspecified protein-calorie malnutrition; E83.51 Hypocalcemia; E66.9 Obesity, unspecified; D64.9 Anemia, unspecified; E78.5 Hyperlipidemia, unspecified; S82.832A Other fracture of upper and lower end of left fibula, initial encounter for closed fracture; Z20.822 Contact with and (suspected) exposure to COVID-19; R74.01 Elevation of levels of liver transaminase levels; M62.81 Muscle weakness (generalized); W01.0XXA Fall on same level from slipping, tripping and stumbling without subsequent striking against object, initial encounter; G89.29 Other chronic pain; M81.0 Age-related osteoporosis without current pathological fracture; Z88.0 Allergy status to penicillin; R29.6 Repeated falls; Z79.01 Long term (current) use of anticoagulants; Z79.899 Other long term (current) drug therapy; Z82.49 Family history of ischemic heart disease and other diseases of the circulatory system; Z83.3 Family history of diabetes mellitus; Z86.711 Personal history of pulmonary embolism; Z91.81 History of falling; Z98.84 Bariatric surgery status; Y93.89 Activity, other specified; Y92.098 Other place in other non-institutional residence as the place of occurrence of the external cause; Y99.8 Other external cause status; Z68.39 Body mass index [BMI] 39.0-39.9, adult
CPT/HCPCS: 36415; 71045; 73590; 73700; 80053; 80061; 80202; 81001; 81003; 82550; 83036; 83735; 84443; 84550; 85025; 85610; 85652; 85730; 86038; 86141; 86850; 86900; 86901; 87040; 87077; 87086; 87186; 87426; 93005; 93306; 96361; 96372; 96374; 96375; 97110; 97163; 97530; G0378

== ENCOUNTER 2024-05-02 21:30 | Inpatient (IN) | payer MEDICAID ==
[~2024-05-02] VITALS: Ht 170.2 cm; Wt 105.9 kg
[~2024-05-02 21:30] MED LIST changes: +APIX5TAB PO; -BACL20TA PO; +CYCL-611 PO; +DULO1CAP5 PO; -GABA-339 PO; +GABA800T97 PO; +HYDR-4798 PO; -HYDR-4833 PO; +MORP15TA PO; +SECU1INJ SC
[2024-05-02] MEDS: FUROSEMIDE 40 MG/4 ML VIAL IV ONE (21:45)
[2024-05-02 22:04] LABS: Basophils # (auto) 0.1 10 ^3/uL (0-0.2); Basophils % (auto) 1.2 % (0.0-2.0); Eosinophils # (auto) 0.1 10 ^3/uL (0-0.8); Eosinophils % (auto) 1.3 % (0.0-7.0); Hematocrit 44.7 % (41.0-53.0); Hemoglobin 14.3 g/dL (13.5-17.5); Lymphocytes # (auto) 2.1 10 ^3/uL (0.4-5.4); Lymphocytes % (auto) 25.5 % (10.0-50.0); Mean Corpuscular Hemoglobin 27.7 pg (28.0-32.0); Mean Corpuscular Volume 86.4 fL (80.0-100.0); Monocytes # (auto) 0.6 10 ^3/uL (0-1.3); Neutrophils # (auto) 5.3 10 ^3/uL (1.6-8.6); Nucleated Red Blood Cells % 0.1 %; Platelet Count (auto) 306 10^3/uL (140-450); Red Blood Cells 5.17 10^6/uL (4.5-5.90); Red Cell Distribution Width 19.6 % (11.8-14.3); White Blood Cell 8.1 10^3/uL (4.4-10.8)
[2024-05-02 22:22] LABS: Alanine Aminotransferase 22 U/L (7-40); Alkaline Phosphatase 180 U/L (46-116); Anion Gap 12 (5-15); BUN/Creatinine Ratio 7.4 (10.0-20.0); Blood Urea Nitrogen 5 mg/dL (9-23); Calcium 8.3 mg/dL (8.7-10.4); Carbon Dioxide 21 mmol/L (20-31); Chloride 112 mmol/L (98-107); Glucose 90 mg/dL (74-106); Potassium 3.7 mmol/L (3.5-5.1); Sodium 145 mmol/L (136-145)
[2024-05-02 22:23] LABS: Albumin 3.1 g/dL (3.2-4.8); Aspartate Aminotransferase 24 U/L (13-40); Bilirubin, Total 0.8 mg/dL (0.2-1.0); Total Protein 6.2 g/dL (5.7-8.2)
[2024-05-02 22:48] LABS: Lipase 30 U/L (12-53)
--- NOTE | 2024-05-02 23:00 | DVH ---
CLINICAL HISTORY: DVT rule out TECHNIQUE: Color and duplex doppler imaging of the right lower extremity veins was performed. Vessel compression if possible was also performed. WID: COMPARISON: None FINDINGS: Greater saphenous vein in the groin demonstrates no flow or compression. Right common femoral vein: Hypoechoic filling defect without flow. Noncompressible. Right femoral vein: No compressibility . Flow is demonstrated. Right popliteal vein: Noncompressible. Flow is demonstrated Proximal calf veins are normally compressible. IMPRESSION: Nonocclusive thrombus within the right superficial femoral, and popliteal vein acute occlusive throm bus in the right greater saphenous vein in the thigh and the right common femoral vein Critical Result: Right lower extremity DVT Findings discussed with Dr Mahoney by the practice support specialist ..
[2024-05-02] MEDS: OXYCODONE W/ ACETAMINOPHEN 5/325MG TABLET PO ONE (23:26)
--- NOTE | 2024-05-02 23:46 | ED.PDOC ---
Musculoskeletal HPI Comments This patient is a 58-year-old male who arrives to the ED today via EMS with complaints of extensive right lower extremity swelling for the past several days. Patient has a history of left lower extremity edema, but states that the right leg has now been affected. Patient has a history of cardiac concerns and is currently on Eliquis. Patient denies any fever nausea or vomiting. Vital signs were stable on arrival. Chief Complaint: Lower Extremity Time Seen by MD: 21:32 Primary Care Provider: UNK Reviewed Notes: Nurses Notes, Ride Mechanic Notes Allergies: Coded Allergies: Penicillins (Verified Allergy, Unknown, 11/07/17) Home Meds Active Scripts Hydrocodone-Acetaminophen (Hydrocodone Bitartrate/AC 10-325 mg) 1 Tab Tab, 1 TAB PO Q6HP PRN for 5 Days, #20 TAB Prov:ARIEL EVANS MD 01/20/23 Reported Medications Secukinumab (Cosentyx Sensoready Pen) 150 Mg/Ml Inj, SC [id number] 05/30/22 Duloxetine HCl (Duloxetine HCl) 30 Mg Cap, 1 CAP PO DAILYPRN 05/30/22 Gabapentin (Gabapentin) 800 Mg Tab, 1 TAB PO TID 05/30/22 Apixaban Base (ELIQUIS) 5 Mg Tab, 1 TAB PO BID 05/30/22 Cyclobenzaprine HCl (Cyclobenzaprine Hydrochlo) 10 Mg Tab, 1 TAB PO TID 05/30/22 Morphine Sulfate (Morphine Sulfate) 15 Mg Tab, 1 TAB PO TID PRN for PAIN SCALE 7 THRU 10 05/30/22 Information Source: Patient, Emergency Med Personnel Mode of Arrival: Ambulatory Location: Right Extremity Location: Leg Timing: Days Prehospital treatment: None Severity: Severe Able to Move Extremity: No Bear Weight: No Pain: Moderate Hand Dominance: Right Mechanism: Spontaneous Circumstances: Spontaneous Onset of Symptoms: Spontaneous Symptoms: Swelling, Pain DVT Risk Factors: DVT Last Tetanus: UTD Associated signs and symptoms: Swelling Past Medical History PAST MEDICAL HISTORY: CAD Past Medical History (Other): Peripheral edema Surgical History: Denies all surgeries Family History Family History: Reviewed,noncontributory to illness Social History Smoker: Non-Smoker Alcohol: Occasionally Drugs: Denies Drug Use Lives In: Home Constitutional: denies: chills, diaphoresis, fatigue, fever, malaise, sweats, weakness, others EENTM: denies: blurred vision, double vision, ear bleeding, ear discharge, ear drainage, ear pain, ear ringing, eye pain, eye redness, hearing loss, mouth pain, mouth swelling, nasal discharge, nose bleeding, nose congestion, nose pain, photophobia, tearing, throat pain, throat swelling, voice changes, others Respiratory: denies: cough, hemoptysis, orthopnea, SOB at rest, shortness of breath, SOB with excertion, stridor, wheezing, others Cardiovascular: denies: chest pain, dizzy spells, diaphoresis, Dyspnea on exertion, edema, irregular heart beat, left arm pain, lightheadedness, palpitations, PND, syncope, others Gastrointestinal: denies: abdomen distended, abdominal pain, blood streaked bowels, constipated, diarrhea, dysphagia, difficulty swallowing, hematemesis, melena, nausea, poor appetite, poor fluid intake, rectal bleeding, rectal pain, vomiting, others Genitourinary: denies: burning, dysuria, flank pain, frequency, hematuria, incontinence, penile discharge, penile sore, pain, testicle pain, testicle swelling, urgency, others Neurological: denies: dizziness, fainting, headache, left sided numbness, left sided weakness, numbness, paresthesia, pre-existing deficit, right sided numbness, right sided weakness, seizure, speech problems, tingling, tremors, weakness, others Musculoskeletal: denies: back pain, gout, joint pain, joint swelling, muscle pain, muscle stiffness, neck pain, others Integumetry: denies: bruises, change in color, change in hair/nails, dryness, laceration, lesions, lumps, rash, wounds, others Allergic/Immunocompromised: denies: Difficulty Healing, Frequent Infections, Hives, Itching, others Hematologic/Lymphatic: denies: anemia, blood clots, easy bleeding, easy bruising, swollen glands, others Endocrine: denies: excessive hunger, excessive sweating, excessive thirst, excessive urination, flushing, intolerance to cold, intolerance to heat, unexplained weight gain, unexplained weight loss, others Psychiatric: denies: anxiety, bipolar disorder, depression, hopeless, panic disorder, schizophrenia, sleepless, suicidal, others Physical Exam General Appearance: Moderate Distress ([id number] distress due to right l ower extremity concerns.), Normal HEENT: Normal ENT Inspection, Pharynx Normal, TMs Normal Neck: Full Range of Motion, Non-Tender, Normal, Normal Inspection Respiratory: Chest Non-Tender, Lungs Clear, No Accessory Muscle Use, No Respiratory Distress, Normal Breath Sounds Cardiovascular: No Edema, No JVD, No Murmur, No Gallop, Normal Peripheral Pulses, Regular Rate/Rhythm Breast Exam: Deferred Gastrointestinal: No Organomegaly, Non Tender, No Pulsatile Mass, Normal Bowel Sounds, Soft Genitalia: Deferred Pelvic: Deferred Rectal: Deferred Extremities: Other (Patient reveals a significantly edematous right lower extremity from the thigh to the foot. Skin is taut and shiny due to fluid retention. Pedal pulses reduced on evaluation.) Neurologic: Alert, bilingual office assistant II-XII nml as Tested, No Motor Deficits, Normal Affect, Normal Mood, No Sensory Deficits Cerebellar Function: Normal Reflexes: Normal Skin: Dry, Normal Color, Warm Lymphatic: No Adenopathy Was a procedure done? Was a procedure done?: No Differential Diagnosis EXT Differential Diagnosis: Deep Vein Thrombosis, Other (Peripheral edema, lymphedema) X-Ray, Labs, Meds, VS Vital Signs Date Time Temp Pulse Resp B/P (MAP) Pulse Ox O2 Delivery O2 Flow Rate FiO2 05/02/24 21:45 124/83 05/02/24 21:30 97.7 97 16 109/78 (88) 98 Lab Test 05/02/24 22:45 05/02/24 21:47 Range/Units Troponin I High Sensitivity 3 L 4 </=54 ng/L White Blood Count 8.1 4.4-10.8 10^3/uL Red Blood Count 5.17 4.5-5.90 10^6/uL Hemoglobin 14.3 13.5-17.5 g/dL Hematocrit 44.7 41.0-53.0 % Mean Corpuscular Volume 86.4 80.0-100.0 fL Mean Corpuscular Hemoglobin 27.7 L 28.0-32.0 pg Mean Corpuscular Hemoglobin Concent 32.0 32.0-36.0 g/dL Red Cell Distribution Width 19.6 H 11.8-14.3 % Platelet Count 306 140-450 10^3/uL Mean Platelet Volume 7.6 6.9-10.8 fL Neutrophils (%) (Auto) 65.0 37.0-80.0 % Lymphocytes (%) (Auto) 25.5 10.0-50.0 % Monocytes (%) (Auto) 7.0 0.0-12.0 % Eosinophils (%) (Auto) 1.3 0.0-7.0 % Basophils (%) (Auto) 1.2 0.0-2.0 % Neutrophils # (Auto) 5.3 1.6-8.6 10 ^3/uL Lymphocytes # (Auto) 2.1 0.4-5.4 10 ^3/uL Monocytes # (Auto) 0.6 0-1.3 10 ^3/uL Eosinophils # (Auto) 0.1 0-0.8 10 ^3/uL Basophils # (Auto) 0.1 0-0.2 10 ^3/uL Nucleated Red Blood Cells 0.1 % Sodium Level 145 136-145 mmol/L Potassium Level 3.7 3.5-5.1 mmol/L Chloride Level 112 H 98-107 mmol/L Carbon Dioxide Level 21 20-31 mmol/L Anion Gap 12 5-15 Blood Urea Nitrogen 5 L 9-23 mg/dL Creatinine 0.68 L 0.700-1.30 mg/dL Glomerular Filtration Rate Calc 108 >90 mL/min BUN/Creatinine Ratio 7.4 L 10.0-20.0 Serum Glucose 90 74-106 mg/dL Lactic Acid Level 3.0 *H 0.4-2.0 mmol/L Calcium Level 8.3 L 8.7-10.4 mg/dL Total Bilirubin 0.8 0.2-1.0 mg/dL Aspartate Amino Transferase (AST) 24 13-40 U/L Alanine Aminotransferase (ALT) 22 7-40 U/L Alkaline Phosphatase 180 H 46-116 U/L B-Type Natriuretic Peptide 42.03 0-100 pg/mL Total Protein 6.2 5.7-8.2 g/dL Albumin 3.1 L 3.2-4.8 g/dL Lipase 30 12-53 U/L Current Medications Medications (Trade) Dose Ordered Sig/Prateek Route Start Time Stop Time Status Last Admin Furosemide (Lasix Injection) 40 mg ONCE ONCE IV 05/02/24 21:45 05/02/24 21:46 DC 05/02/24 21:45 Oxycodone/ Acetaminophen (Percocet 5/ 325MG Tablet) 1 tab ONCE ONCE PO 05/02/24 21:45 05/02/24 21:46 DC 05/02/24 23:26 X-Ray, Labs, Meds, VS Comment All studies performed the ED were evaluated by me personally. EKG revealed a sinus rhythm with borderline T-wave abnormalities in the inferior leads. Borderline prolonged QT interval. Rate was 82, AL interval of 146 and QT interval of 414. Patient's laboratories revealed an elevated lactic acid as well as an elevated like false. Doppler ultrasound of right lower extremity revealed multiple signs of DVT formation. Patient will continue with his Eliquis, but may require continued evaluation as the right leg reveals extensive edema. Time of 1ST Reevaluation: 23:44 Reevaluation 1ST: Improved Consultation: PCP Patient Education/Counseling: Diagnosis, Treatment Family Education/Counseling: Diagnosis, Treatment Departure 1 Departure Time of Disposition: 23:44 Impression: Primary Impression: DVT (deep venous thrombosis) Additional Impression: Elevated lactic acid level Disposition: ADMITTED INPATIENT Condition: Stable Discharged With: Self Critical Care Note Critical Care Time?: No Stability Stability form required: No Heart Score Heart Score: Heart Score Response (Comments) Value History Slightly Suspicious 0 EKG Repolarization Disturb 1 Age 45-64 1 Risk Factors 1 or 2 risk factors 1 Troponin Normal limit 0 Total 3 PHILL VAUGHN PAC May 02, 2024 23:46
[2024-05-02] MEDS: SODIUM CHLORIDE 0.9% 1,000 ML IV ONE (23:59)
[2024-05-03] MEDS ORDERED: HYDROcodone-ACET 5/325MG TAB PO PRN (00:15)
[2024-05-03] MEDS ORDERED: NITROGLYCERIN 0.4 MG SL TAB SL PRN (00:15)
[2024-05-03] MEDS ORDERED: ONDANSETRON HCL 4 MG/2 ML VIAL IV PRN (00:15)
[2024-05-03] MEDS ORDERED: MORPHINE SULFATE INJ 2 MG/ml SYRG IV PRN (00:15)
--- NOTE | 2024-05-03 00:36 | DVHHPRES ---
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 According to the patient he 1st noticed pain and swelling of the rt leg 1 week ago and it is getting worse that prompted this visit. 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 He is on home oxygen but for last 2 month he was no using any oxygen and his saturation is normal. The patient mentioned that he has family history significant for CHF due to dilated cardiomyopathy and he was previously extensive workup for recurrent DVT and PE and concluded that he has spontaneous blood clot according to the patient. He denies shortness of breath, chest pain, dizziness, diaphoresis, abdominal pain, nausea, vomiting or any change in bowel and bladder habit. PCP: Dr. Bailey Cardiology Fellow: Dr. Paredes Past Medical History Inclusion body myositis, foot drop ,recurrent DVT and PE , CHF Past Surgical History IVC filter placement Family History Family history is significant for CHF due to dilated cardiomyopathy Smoke: No ALCOHOL: none Drugs: None Lives: with Family Review of Systems Constitutional: No: Fever, Chills, Sweats, Weakness, Malaise, Other Eyes: Pain; No: Vision change, Conjunctivae inflammation, Eyelid inflammation, Other, Redness ENT: No: Ear pain, Ear discharge, Nose pain, Nose discharge, Nose congestion, Mouth pain, Mouth swelling, Throat pain, Throat swelling, Other Respiratory: No: Cough, Dry, Shortness of breath, SOB with excertion, Wheezing, Hemoptysis, Pleuritic Pain, Sputum, Wheezing, Other Cardiovascular: No: Chest Pain, Palpitations, Orthopnea, Paroxysmal Noc. Dyspnea, Edema, Lt Headedness, Other Gastrointestinal: No: Nausea, Vomiting, Abdominal Pain, Diarrhea, Constipation, Melena, Hematochezia, Other Genitourinary: No Dysuria, No Frequency, No Incontinence, No Hematuria, No Retention, No Other Musculoskeletal: leg pain; No: other, neck pain, shoulder pain, arm pain, back pain, hand pain, foot pain Skin: No: Rash, Lesions, Jaundice, Bruising, Other Neurological: No: Weakness, Numbness, Incoordination, Change in speech, Co nfusion, Seizures, Other Allergies: Coded Allergies: Penicillins (Verified Allergy, Unknown, 11/07/17) Medications Current Medications Medications Dose Ordered Sig/Prateek Route Start Time Stop Time Status Last Admin Dose Admin Sodium Chloride 10 ml Q8HR IV 05/03/24 06:00 Acetaminophen/ Hydrocodone Bitart 1 tab Q4HP PRN PO 05/03/24 00:15 Ondansetron HCl 4 mg Q4HP PRN IV 05/03/24 00:15 Nitroglycerin 0.4 mg Q5MINP PRN SL 05/03/24 00:15 Morphine Sulfate 2 mg Q30M PRN IV 05/03/24 00:15 Exam Vital Signs Vital Signs Date Time Temp Pulse Resp B/P (MAP) Pulse Ox O2 Delivery O2 Flow Rate FiO2 05/02/24 23:46 82 05/02/24 21:45 124/83 05/02/24 21:30 97.7 16 98 Exam Physical examination: General Appearance: Alert, Oriented X3, Cooperative, No acute distress HEENT: Atraumatic, PERRLA, EOMI, Mucous membrane moist/pink Respiratory: Clear to auscultation, Normal air movement Cardiovascular: Regular rate, Normal S1, Normal S2, No murmurs, no chest wall tenderness Abdominal: Normal bowel sounds, Soft, No tenderness, No hepatospenomegaly, No masses Extremities: Right lower extremity swelling from thigh to ankle, edema+, No clubbing, No cyanosis, Normal pulses Skin: No rashes, No breakdown, No significant lesion Neuro: Normal gait, Normal speech, Strength at 5/5 X4 ext, Normal tone, Sensation intact, grossly intact cranial nerves. Psych/Mental Status: Mental status NL, Mood NL Labs/Xrays Labs Test 05/02/24 23:47 05/02/24 22:45 05/02/24 21:47 Range/Units Lactic Acid Level 3.3 *H 0.4-2.0 mmol/L Troponin I High Sensitivity 3 L </=54 ng/L White Blood Count 8.1 4.4-10.8 10^3/uL Red Blood Count 5.17 4.5-5.90 10^6/uL Hemoglobin 14.3 13.5-17.5 g/dL Hematocrit 44.7 41.0-53.0 % Mean Corpuscular Volume 86.4 80.0-100.0 fL Mean Corpuscular Hemoglobin 27.7 L 28.0-32.0 pg Mean Corpuscular Hemoglobin Concent 32.0 32.0-36.0 g/dL Red Cell Distribution Width 19.6 H 11.8-14.3 % Platelet Count 306 140-450 10^3/uL Mean Platelet Volume 7.6 6.9-10.8 fL Neutrophils (%) (Auto) 65.0 37.0-80.0 % Lymphocytes (%) (Auto) 25.5 10.0-50.0 % Monocytes (%) (Auto) 7.0 0.0-12.0 % Eosinophils (%) (Auto) 1.3 0.0-7.0 % Basophils (%) (Auto) 1.2 0.0-2.0 % Neutrophils # (Auto) 5.3 1.6-8.6 10 ^3/uL Lymphocytes # (Auto) 2.1 0.4-5.4 10 ^3/uL Monocytes # (Auto) 0.6 0-1.3 10 ^3/uL Eosinophils # (Auto) 0.1 0-0.8 10 ^3/uL Basophils # (Auto) 0.1 0-0.2 10 ^3/uL Nucleated Red Blood Cells 0.1 % Sodium Level 145 136-145 mmol/L Potassium Level 3.7 3.5-5.1 mmol/L Chloride Level 112 H 98-107 mmol/L Carbon Dioxide Level 21 20-31 mmol/L Anion Gap 12 5-15 Blood Urea Nitrogen 5 L 9-23 mg/dL Creatinine 0.68 L 0.700-1.30 mg/dL Glomerular Filtration Rate Calc 108 >90 mL/min BUN/Creatinine Ratio 7.4 L 10.0-20.0 Serum Glucose 90 74-106 mg/dL Calcium Level 8.3 L 8.7-10.4 mg/dL Total Bilirubin 0.8 0.2-1.0 mg/dL Aspartate Amino Transferase (AST) 24 13-40 U/L Alanine Aminotransferase (ALT) 22 7-40 U/L Alkaline Phosphatase 180 H 46-116 U/L B-Type Natriuretic Peptide 42.03 0-100 pg/mL Total Protein 6.2 5.7-8.2 g/dL Albumin 3.1 L 3.2-4.8 g/dL Lipase 30 12-53 U/L Assessment/Plan Assessment/Plan Assessment and plan: # Acute DVT of right lower extremity # History of recurrent DVT and PE and s/p IVC filter due to spontaneous blood clot # Patient was on Eliquis 5 mg b.i.d. for last 1 year - Doppler scan of the lower extremity revealed nonocclusive thrombus within the right superficial femoral,and popliteal vein acute occlusive thrombus in the right greater saphenous vein in the thigh and the right common femoral vein. - Wells' criteria for DVT>6 - Started heparin drip as per DVT/PE protocol # Lactic acidosis without sepsis. - Lactic acid trends are 3.0>3.3 - Patient was given 1 L bolus normal saline followed by IV normal saline at 100 mL/hour. - Monitor lactic acid level. # Chronic CHF due to dilated cardiomyopathy - Patient is on room air - BNP is not elevated - Chest x-ray revealed cardiomegaly without any pulmonary vascular congestion # Inclusion body myositis - Diagnosed as a case of inclusion body myositis in his late 30s - Patient is wheelchair-bound and not able to walk more than 10 steps - Following with specialist in [place] # Isolated elevation of alkaline phosphatase, rule out bone pathology - Monitor CMP. # Morbid obesity, BMI 79.4 kg/m2 - Counseled patient regarding diet and lifestyle modification. Goal of care discussed with the patient for more than 20 minutes full code Plan of treatment discussed with Dr. Herrera Plan discussed with: Patient, Other My Orders Orders - DAPHNE LANDEROS RESIDENT Procedure Category Date Status Time Admit ADMIT 05/03/24 Transmitted 00:12 Code Status CODE 05/03/24 Transmitted 00:12 Sodium Chloride Lock PHA 05/03/24 In Process (Saline Lock Ns) 06:00 Hydrocodone-Acet PHA 05/03/24 In Process 5/325mg Tab ([place] 00:15 Ondansetron Hcl PHA 05/03/24 In Process (Zofran) 00:15 Complete Blood Count LAB 05/04/24 Verified 04:00 Comprehensive LAB 05/04/24 Verified Metabolic Panel 04:00 Nitroglycerin PHA 05/03/24 In Process Sublingual (Ntrostat 00:15 Morphine Sulfate PHA 05/03/24 In Process Injection 00:15 Oxygen By Nasal RT 05/03/24 Transmitted Cannula 00:12 Stat Ekg For Chest [facility] 05/03/24 In Process Pain 00:12 Notify Md Of Changes [facility] 05/03/24 In Process From Base 00:12 Director Banking For [facility] 05/03/24 In Process 24 Hours 00:12 Emergency Dysrhythmia [facility] 05/03/24 In Process Protocol 00:12 Rhythm Strips Once [facility] 05/03/24 In Process Every Shift 00:12 Date of Service: May 03, 2024 Billing Provider: MARK HERRERA MD Common Visit Codes: 35583-APDSFHU INP/OBS CARE (HIGH) Secondary Visit Codes: [id number] CARE PLAN 30 MINUTES DAPHNE LANDEROS RESIDENT May 03, 2024 00:36 MARK HERRERA MD May 03, 2024 17:39
[2024-05-03 01:14] LABS: Basophils # (auto) 0.1 10 ^3/uL (0-0.2); Basophils % (auto) 1.4 % (0.0-2.0); Eosinophils # (auto) 0.2 10 ^3/uL (0-0.8); Eosinophils % (auto) 2.1 % (0.0-7.0); Hematocrit 44.9 % (41.0-53.0); Hemoglobin 14.6 g/dL (13.5-17.5); Lymphocytes # (auto) 2.5 10 ^3/uL (0.4-5.4); Lymphocytes % (auto) 34.6 % (10.0-50.0); Mean Corpuscular Hemoglobin 28.4 pg (28.0-32.0); Mean Corpuscular Hgb Conc. 32.6 g/dL (32.0-36.0); Mean Corpuscular Volume 87.1 fL (80.0-100.0); Monocytes # (auto) 0.6 10 ^3/uL (0-1.3); Monocytes % (auto) 7.7 % (0.0-12.0); Neutrophils # (auto) 3.9 10 ^3/uL (1.6-8.6); Neutrophils % (auto) 54.2 % (37.0-80.0); Nucleated Red Blood Cells % 0.2 %; Platelet Count (auto) 295 10^3/uL (140-450); Red Blood Cells 5.15 10^6/uL (4.5-5.90); Red Cell Distribution Width 19.6 % (11.8-14.3); White Blood Cell 7.3 10^3/uL (4.4-10.8)
[2024-05-03] MEDS: SODIUM CHLORIDE 0.9% 1,000 ML IV ONE (01:14)
--- NOTE | 2024-05-03 01:26 | DVH ---
EXAM: XY CHEST PORTABLE CLINICAL HISTORY: shortness of breath TECHNIQUE: Single view of the chest WID: COMPARISON: None FINDINGS: Lines and tubes: There is a loop recorder device projecting over the left perihilar region. Chest: The heart size and pulmonary vasculature is within normal limits. Calcified plaque projects over the aortic arch. No pleural effusion, pneumothorax, or consolidation. Linear left basilar opacities The osseous structures are grossly intact. IMPRESSION: No acute cardiopulmonary abnormality. Linear left basilar opacities likely atelectasis or scarring
[2024-05-03] MEDS: SODIUM CHLOR 0.9% PF (SALINE LOCK) 10ML VIAL/SYR IV SCH (06:29)
[2024-05-03 06:51] VITALS: PULSE 80; RESP 16; O2SAT 94
--- NOTE | 2024-05-03 07:05 | ECG ---
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
[2024-05-03 07:30] VITALS: PULSE 86; RESP 15; O2SAT 95
[2024-05-03] MEDS: HEPARIN DRIP/D5W 100UNITS/ML 250 ML IV SCH ×4 (07:37→23:59)
[2024-05-03] MEDS ORDERED: HEPARIN SODIUM (PORCINE) 5000 UNITS/ML 1ML VIAL IV ONE (07:45)
[2024-05-03 08:10] LABS: INR 1.1 (0.9-1.15); Partial Thromboplastin Time 28.5 SEC (24.5-34.5); Prothrombin Time 11.6 sec (9.3-11.8)
[2024-05-03] MEDS: IOHEXOL 350 MG/ML 100ML IJ ONE (08:39)
[2024-05-03] MEDS: HEPARIN SODIUM (PORCINE) 5000 UNITS/ML 1ML VIAL IV ONE (08:44)
--- NOTE | 2024-05-03 09:07 | DVH ---
CTA CHEST INDICATION: To rule out PE TECHNIQUE: Multidetector CTA of the chest was performed of the chest with 100 cc of intravenous contr ast. PULMONARY ANGIOGRAPHY PROTOCOL was utilized using a bolus-tracking technique centered on the dona n pulmonary artery. Axial, coronal and sagittal multiplanar and MIP reformats were performed. Radiation Dose Information: CT Dose: CTDI volume is 8.88 mGy. Dose-length product is 831.57 mGy*cm The dose indicators for CT are the volume Computed Tomography (CT) Dose Index (CTDIvol) and the Dose Length Product (DLP), and are measured in units of mGy and mGy-cm, respectively. These indicators are not patient dose, but values generated from the CT scanner acquisition factors. The report includes radiation exposure data for exposures received during this examination. Comparison: None. Findings: Pulmonary artery: There is moderate thrombus seen in the subsegmental branch of the superior right l ower lobe pulmonary artery. There is additional smaller thrombus seen in the subsegmental branch of t he right upper lobe pulmonary artery. There is also minimal thrombus seen in the subsegmental branche s of the right middle lobe pulmonary artery and posterior right lower lobe pulmonary artery. There is no thrombus seen in the left pulmonary arteries.. The main pulmonary artery is normal in size. Lungs: No focal consolidation, pulmonary mass, or suspicious pulmonary nodule. There is mild scarring versus atelectasis in the posterior lung bases. Heart/Vascular Structures: Normal heart size. The thoracic aorta demonstrates normal caliber. There is no evidence of pericardial effusion. Lymph Nodes: There is no evidence of mediastinal, hilar or axillary lymphadenopathy. Pleura: No pleural effusion or significant pneumothorax. Musculoskeletal: No acute osseous abnormality. Upper abdomen: Is diffuse fatty infiltration. There are small calcified gallstones within the gallbla dder. There are postsurgical changes related to gastric bypass surgery. Remaining visualized intra-ab dominal structures appear within normal limits. IMPRESSION: 1. There is moderate thrombus seen in the superior subsegmental branch of the right lower lobe pulmo nary artery. There are additional smaller foci of thrombus seen in the subsegmental branches of the r ight upper lobe, right middle lobe and posterior right lower lobe pulmonary arteries. 2. Diffuse fatty infiltration of the liver. 3. Cholelithiasis. The results were discussed with nurse practitioner Ting Pickett by Dr. Jona Solares on 05/03/2024, 9 04 hours. HS:Y
[2024-05-03 13:09] LABS: Urine Bacteria None Seen /hpf (None Seen)
[2024-05-03 13:34] LABS: Urine Blood Negative /uL (Negative); Urine Clarity Clear (Clear); Urine Color Yellow (Yellow); Urine Protein, UAD TRACE (Negative); Urine Urobilinogen 4 mg/dL (Negative); Urine WBC 2 /hpf (0 - 3)
[2024-05-03 13:38] LABS: Urine Specific Gravity > 1.050 (1.001-1.035)
[2024-05-03 13:47] LABS: Amphetamine Screen, Urine Neg (NEGATIVE); Barbiturate Scree,Urine Neg (NEGATIVE); Benzodiazephine Screen, Urine Neg (NEGATIVE); Cannabinoid Screen, Urine Neg (NEGATIVE); Cocaine Screen, Urine Neg (NEGATIVE); Opiate Scree,Urine Neg (NEGATIVE); Phencyclidine Screen, Urine Neg (NEGATIVE)
--- NOTE | 2024-05-03 14:52 | DVHPNRES ---
Progress Note Date Seen: May 03, 2024 Resident Creating Document: NORMA GEORGES RESIDENT Medical Necessity Reason Pt with a Central, PICC or Fol: No Subjective Review of Systems Patient is 58 years old male with past medical history of recurrent DVT and pulmonary embolism, inclusion body myositis, footdrop, status post IVC filter, CHF came to the ER with a complaint of right leg swelling started 7-8 days before.. Per patient patient started having right leg swelling 7-8 days before. Initially leg was elbow painful 6/10 then gradually pain went away. Patient patient has a recurrent history of DVT and pulmonary embolism at least 6-7 times came in the patient is on Eliquis 5 mg p.o. b.i.d. and patient has inferior vena caval filter in place.. Patient usually goes to [facility] and detailed workup was done but no cause was identified for recurrent DVT and pulmonary embolism. Patient was diagnosed as spontaneous blood clot platelet. Patient also had inferior vena cava filter but even after that patient keep getting pulmonary embolism. As per patient [facility] did some bronchoscopy and tried to clear of the embolus in the lungs but it was partial could not finish the complete clinic of the lungs. Patient reported his brother of dilated cardiomyopathy. The patient mentioned that he has family history significant for CHF due to dilated cardiomyopathy.He is on home oxygen but for last 2 month he was no using any oxygen and his saturation is normal. CXR revealed-No acute cardiopulmonary abnormality. Linear left basilar opacities likely atelectasis or scarring. Doppler study of the lower extremity revealed- Nonocclusive thrombus within the right superficial femoral, and popliteal vein acute occlusive thrombus in the right greater saphenous vein in the thigh and the right common femoral vein. Critical Result: Right lower extremity DVT. CT angio of the chest revealed-1. There is moderate thrombus seen in the superior subsegmental branch of the right lower lobe pulmonary artery. There are additional smaller foci of thrombus seen in the subsegmental branches of the right upper lobe, right middle lobe and posterior right lower lobe pulmonary arteries. Diffuse fatty infiltration of the liver. Cholelithiasis. PMH-DVT and pulmonary embolism, inclusion body myositis, footdrop, status post IVC filter, CHF PSH- IVC filter placement Allergy- penicillin Personal History/ Social History-denies smoking, alcoholism or drug abuse. Family History-Family history is significant for CHF due to dilated cardiomyopathy Patient was seen today at the bedside. Patient reports leg swelling Cardiovascular- deny acute chest pain or shortness of breath or cough or palpitation Respiratory- denies cough or short of breath or wheezing Gastrointestinal- denies any rectal bleeding, nausea or vomiting Musculoskeletal-denies acute joint swelling or tenderness or redness Neurological- denies acute dysarthria, dysphagia, change in vision Psychiatry- denies depression or SI or HI Skin- denies acute rash or purpura Patient was seen today for clinical evaluation. Less than chart reviewed. Initial lab work up revealed lactic acidosis, 3> 3.3, CXR revealed-No acute cardiopulmonary abnormality. Linear left basilar opacities likely atelectasis or scarring. Doppler study of the lower extremity revealed-Nonocclusive thrombus within the right superficial femoral, and popliteal vein acute occlusive thrombus in the right greater saphenous vein in the thigh and the right common femoral vein. Critical Result: Right lower extremity DVT. CT angio of the chest revealed-1. There is moderate thrombus seen in the superior subsegmental branch of the right lower lobe pulmonary artery. There are additional smaller foci of thrombus seen in the subsegmental branches of the right upper lobe, right middle lobe and posterior right lower lobe pulmonary arteries. Diffuse fatty infiltration of the liver. Cholelithiasis. Patient in room air, denied any chest pain or shortness of breath. Right lower extremity swollen and nontender. Heparin 5000 units subcutaneously q.12 hours. Objective vital signs Vital Sign Date Time Temp Pulse Resp B/P (MAP) Pulse Ox O2 Delivery O2 Flow Rate FiO2 05/03/24 12:56 90 21 122/80 (94) 90 05/03/24 08:37 98.2 98.2 05/03/24 07:30 Nasal Cannula* 2 28 Total Intake and Output 05/02/24 05/02/24 05/03/24 15:00 23:00 07:00 Intake Total 200 ml Output Total 1600 ml Balance -1400 ml medications Current Medications Medications Dose Ordered Sig/Prateek Route Start Time Stop Time Status Last Admin Dose Admin Sodium Chloride 10 ml Q8HR IV 05/03/24 06:00 05/03/24 06:29 10 ML Acetaminophen/ Hydrocodone Bitart 1 tab Q4HP PRN PO 05/03/24 00:15 Ondansetron HCl 4 mg Q4HP PRN IV 05/03/24 00:15 Nitroglycerin 0.4 mg Q5MINP PRN SL 05/03/24 00:15 Morphine Sulfate 2 mg Q30M PRN IV 05/03/24 00:15 Heparin Sodium/ Dextrose 250 ml @ 18 mls/hr [id number] IV 05/03/24 08:15 05/03/24 07:40 18 MLS/HR Examination General examination- , alert, oriented, conversant HEENT- PEERLA, no acute nasal discharge Cardiovascular- S1-S2 audible, rate and rhythm regular, no murmur Respiratory- CTAB, no wheeze or rhonchi Gastrointestinal-nontender, bowel sound+. Nondistended Musculoskeletal-no acute joint swelling or tenderness or redness# Lower extremity- right lower leg swelling++ Neurological- cranial nerves intact, no acute dysarthria or dysphagia Psychiatry- denies depression or SI or HI Skin- no acute rash or purpura laboratory and microbiology Laboratory Tests 05/03/24 01:03 05/02/24 21:47 Test 05/02/24 21:47 Range/Units Serum Glucose 90 74-106 mg/dL Problem List/Assessment/Plan Problem List/Assessment/Plan #Right lower extremity swelling due to acute DVT -History of recurrent DVT and PE and s/p IVC filter due to spontaneous blood clot - Patient was on Eliquis 5 mg b.i.d. for last 1 year - Doppler scan of the lower extremity revealed nonocclusive thrombus within the right superficial femoral,and popliteal vein acute occlusive thrombus in the right greater saphenous vein in the thigh and the right common femoral vein. -CT angio of the chest revealed-There is moderate thrombus seen in the superior subsegmental branch of the right lower lobe pulmonary artery. There are additional smaller foci of thrombus seen in the subsegmental branches of the right upper lobe, right middle lobe and posterior right lower lobe pulmonary arteries. - Wells' criteria for DVT>6 - Started heparin drip as per DVT/PE protocol -ordered hematology consult for further evaluation and care # Acute DVT of right lower extremity -History of recurrent DVT and PE and s/p IVC filter due to spontaneous blood clot - Patient was on Eliquis 5 mg b.i.d. for last 1 year - Doppler scan of the lower extremity revealed nonocclusive thrombus within the right superficial femoral,and popliteal vein acute occlusive thrombus in the right greater saphenous vein in the thigh and the right common femoral vein. --CT angio of the chest revealed-There is moderate thrombus seen in the superior subsegmental branch of the right lower lobe pulmonary artery. There are additional smaller foci of thrombus seen in the subsegmental branches of the right upper lobe, right middle lobe and posterior right lower lobe pulmonary arteries. - Wells' criteria for DVT>6 - Started heparin drip as per DVT/PE protocol --ordered hematology consult for further evaluation and care # History of recurrent DVT and PE and s/p IVC filter due to spontaneous blood clot -Patient was on Eliquis 5 mg b.i.d. for last 1 year - Doppler scan of the lower extremity revealed nonocclusive thrombus within the right superficial femoral,and popliteal vein acute occlusive thrombus in the right greater saphenous vein in the thigh and the right common femoral vein. --CT angio of the chest revealed-There is moderate thrombus seen in the superior subsegmental branch of the right lower lobe pulmonary artery. There are additional smaller foci of thrombus seen in the subsegmental branches of the right upper lobe, right middle lobe and posterior right lower lobe pulmonary arteries. - Wells' criteria for DVT>6 - Started heparin drip as per DVT/PE protocol -ordered hematology consult for further evaluation and care # Lactic acidosis without sepsis. - Lactic acid trends are 3.0>3.3 - Patient was given 1 L bolus normal saline followed by IV normal saline at 100 mL/hour. - Monitor lactic acid level. 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 # steatosis - CT angio revealed- Diffuse fatty infiltration of the liver. # cholelithiasis -asymptomatic -CT angio revealed cholelithiasis -follow up lesion surgery # Morbid obesity, BMI 79.4 kg/m2 - Counseled patient regarding diet and lifestyle modification. Goal of care discussed with the patient for more than 20 minutes full code Goals of care/advance care planning; FULL CODE; discussed with the patient >15 minutes PUD prophylaxis: DVT prophylaxis: Patient on heparin Plan discussed with Dr. Glez,,, nursing staff, patient Total time spent on patient evaluation, chart review, assessment and plan, discussion discussion >20 minutes Plan discussed with: Patient Plan discussed with: Patient (RN) Date of Service: May 03, 2024 Billing Provider: YVAN GLEZ MD Common Visit Codes: [id number] INP/OBS CARE(HIGH) Secondary Visit Codes: 57091-[id number] CARE PLAN 30 MINUTES NORMA GEORGES RESIDENT May 03, 2024 14:52 YVAN GLEZ MD May 04, 2024 11:41
[2024-05-03 15:15] LABS: INR 1.21 (0.9-1.15); Prothrombin Time 12.6 sec (9.3-11.8)
[2024-05-03 15:25] LABS: Partial Thromboplastin Time 132.7 SEC (24.5-34.5)
[2024-05-03 19:35] VITALS: PULSE 86; RESP 15; O2SAT 95
[2024-05-03 23:07] LABS: INR 1.13 (0.9-1.15); Prothrombin Time 11.9 sec (9.3-11.8)
[2024-05-03 23:14] LABS: Partial Thromboplastin Time 75.7 SEC (24.5-34.5)
[2024-05-04] VITALS (7 sets, daily range): BP systolic 111–141; BP diastolic 65–86; PULSE 67–93; RESP 18–22; TEMP 97.7–98.2; O2SAT 0–97
[2024-05-04 06:37] LABS: Basophils # (auto) 0.1 10 ^3/uL (0-0.2); Basophils % (auto) 1.3 % (0.0-2.0); Eosinophils # (auto) 0.1 10 ^3/uL (0-0.8); Eosinophils % (auto) 1.9 % (0.0-7.0); Lymphocytes # (auto) 2.2 10 ^3/uL (0.4-5.4); Lymphocytes % (auto) 36.7 % (10.0-50.0); Mean Corpuscular Hemoglobin 28.5 pg (28.0-32.0); Mean Corpuscular Hgb Conc. 33.3 g/dL (32.0-36.0); Mean Corpuscular Volume 85.7 fL (80.0-100.0); Monocytes # (auto) 0.6 10 ^3/uL (0-1.3); Monocytes % (auto) 9.3 % (0.0-12.0); Neutrophils % (auto) 50.8 % (37.0-80.0); Nucleated Red Blood Cells % 0.1 %; Platelet Count (auto) 260 10^3/uL (140-450); Red Blood Cells 4.56 10^6/uL (4.5-5.90); Red Cell Distribution Width 19.6 % (11.8-14.3); White Blood Cell 5.9 10^3/uL (4.4-10.8)
[2024-05-04 06:54] LABS: Alanine Aminotransferase 24 U/L (7-40); Albumin 2.8 g/dL (3.2-4.8); Alkaline Phosphatase 161 U/L (46-116); Anion Gap 9 (5-15); Aspartate Aminotransferase 26 U/L (13-40); BUN/Creatinine Ratio 13.6 (10.0-20.0); Blood Urea Nitrogen 9 mg/dL (9-23); Calcium 8.5 mg/dL (8.7-10.4); Carbon Dioxide 27 mmol/L (20-31); Chloride 107 mmol/L (98-107); Glucose 83 mg/dL (74-106); Potassium 3.9 mmol/L (3.5-5.1); Sodium 143 mmol/L (136-145)
[2024-05-04 06:55] LABS: Bilirubin, Total 1.1 mg/dL (0.2-1.0); Total Protein 5.4 g/dL (5.7-8.2)
[2024-05-04 07:10] LABS: INR 1.11 (0.9-1.15); Partial Thromboplastin Time 55.4 SEC (24.5-34.5); Prothrombin Time 11.7 sec (9.3-11.8)
[2024-05-04 12:08] LABS: INR 1.13 (0.9-1.15); Partial Thromboplastin Time 54.5 SEC (24.5-34.5); Prothrombin Time 11.9 sec (9.3-11.8)
--- NOTE | 2024-05-04 14:47 | DVHPNRES ---
Progress Note Date Seen: May 04, 2024 Resident Creating Document: BINA REYNOLDS RESIDENT Has the PT tested + for MRSA If YES, has PT been informed?: No Medical Necessity Reason Pt with a Central, PICC or Fol: No Subjective Review of Systems This is a 58 years old male with past medical history of recurrent DVT and pulmonary embolism, inclusion body myositis, footdrop, status post IVC filter, CHF came to the ER with a complaint of right leg swelling started 7-8 days before. Per patient patient started having right leg swelling 7-8 days before. Initially leg was very painful 6/10 then gradually pain went away. Patient patient has a recurrent history of DVT and pulmonary embolism at least 6-7 times came in the patient is on Eliquis 5 mg p.o. b.i.d. and patient has inferior vena caval filter in place. Patient usually goes to [facility] and detailed workup was done but no cause was identified for recurrent DVT and pulmonary embolism. Patient was diagnosed as spontaneous blood clot platelet. Patient also had inferior vena cava filter but even after that patient keep getting pulmonary embolism. As per patient [facility] did some bronchoscopy and tried to clear of the embolus in the lungs but it was partial could not finish the complete clinic of the lungs. Patient reported his brother of dilated cardiomyopathy. The patient mentioned that he has family history significant for CHF due to dilated cardiomyopathy.He is on home oxygen but for last 2 month he was no using any oxygen and his saturation is normal. CXR revealed-No acute cardiopulmonary abnormality. Linear left basilar opacities likely atelectasis or scarring. Doppler study of the lower extremity revealed- Nonocclusive thrombus within the right superficial femoral, and popliteal vein acute occlusive thrombus in the right greater saphenous vein in the thigh and the right common femoral vein. Critical Result: Right lower extremity DVT. CT angio of the chest revealed a moderate thrombus seen in the superior subsegmental branch of the right lower lobe pulmonary artery. There are additional smaller foci of thrombus seen in the subsegmental branches of the right upper lobe, right middle lobe and posterior right lower lobe pulmonary arteries. Patient seen and examined at bedside. Patient states that the right lower extremity pain has decreased considerably compared to admission but is still swollen and tight. Patient is currently on heparin drip which we will we continue until tonight and we will transition to Eliquis 10 mg b.i.d.. Patient has no additional complaints at this time and states that has no shortness of breath or chest tightness. The patient is currently saturating 97% on room air. We will follow up closely and monitor for worsening of the swelling. ROS Constitutional: Denies weight loss, fever and chills. HEENT: Denies changes in vision and hearing. Respiratory: Denies shortness of breath and cough Cardiovascular: Denies chest discomfort or palpitations GI: Denies abdominal pain, nausea, vomiting and diarrhea. : Denies dysuria and urinary frequency. Musculoskeletal: Reports right lower extremity swelling. Denies any other myalgias or arthralgias. Skin: Denies rash and pruritus. Neurological: Denies dizziness, headache, vision or hearing problems Objective vital signs Vital Sign Date Time Temp Pulse Resp B/P (MAP) Pulse Ox O2 Delivery O2 Flow Rate FiO2 05/04/24 12:00 97.7 74 18 111/70 (84) 97 97.7 05/04/24 03:30 Room Air* 0 21 Total Intake and Output 05/03/24 05/03/24 05/04/24 15:00 23:00 07:00 Intake Total 126 ml 75 ml 41 ml Output Total 0 ml Balance 126 ml 75 ml 41 ml medications Current Medications Medications Dose Ordered Sig/Prateek Route Start Time Stop Time Status Last Admin Dose Admin Sodium Chloride 10 ml Q8HR IV 05/03/24 06:00 05/04/24 06:12 10 ML Acetaminophen/ Hydrocodone Bitart 1 tab Q4HP PRN PO 05/03/24 00:15 Ondansetron HCl 4 mg Q4HP PRN IV 05/03/24 00:15 Heparin Sodium/ Dextrose 250 ml @ 13 mls/hr [id number] IV 05/03/24 23:45 05/03/24 23:59 13 MLS/HR Examination Physical Examination General: Patient alert and oriented in person, place and time. Patient following commands. HEENT: Normocephalic, atraumatic, moist mucous membranes Respiratory/pulmonary: Clear lungs bilaterally, no associated crackles or wheezes. Cardiovascular: Normal regular heart sounds S1 and S2 with no associated murmurs Abdomen: Abdomen nondistended, there is no pain to palpation in any of the abdominal quadrants, no palpable masses. Extremities: There is significant swelling on the right lower extremity, there is no significant pain at this time. left lower ext not significant swelling. Peripheral Pulses: 3+ Radial (R). 3+ Radial (L). 3+ Dorsalis pedis (R). 3+ Dorsalis pedis(L) Skin: No rashes or pruritus, there is no sacral edema present at this time. Neurological: Intact cranial nerves with no focal neurologic deficits laboratory and microbiology Laboratory Tests 05/04/24 05:49 Test 05/04/24 05:49 Range/Units Serum Glucose 83 74-106 mg/dL Problem List/Assessment/Plan Problem List/Assessment/Plan Assessment/Plan Right lower extremity swelling due to acute DVT -History of recurrent DVT and PE and s/p IVC filter due to spontaneous blood clot -Patient was on Eliquis 5 mg b.i.d. for last 1 year -Doppler scan of the lower extremity revealed nonocclusive thrombus within the right superficial femoral,and popliteal vein acute occlusive thrombus in the right greater saphenous vein in the thigh and the right common femoral vein. -CT angio of the chest revealed-There is moderate thrombus seen in the superior subsegmental branch of the right lower lobe pulmonary artery. There are additional smaller foci of thrombus seen in the subsegmental branches of the right upper lobe, right middle lobe and posterior right lower lobe pulmonary arteries. -Wells' criteria for DVT>6 -Continue heparin drip as per DVT/PE protocol, DC heparin drip at night and transition to eliquis -Start Eliquis 10 mg BID for the first 7 days then switch to 5 mg BID. -ordered hematology consult for further evaluation and care Acute DVT of right lower extremity -History of recurrent DVT and PE and s/p IVC filter due to spontaneous blood clot - Patient was on Eliquis 5 mg b.i.d. for last 1 year - Doppler scan of the lower extremity revealed nonocclusive thrombus within the right superficial femoral,and popliteal vein acute occlusive thrombus in the right greater saphenous vein in the thigh and the right common femoral vein. -CT angio of the chest revealed-There is moderate thrombus seen in the superior subsegmental branch of the right lower lobe pulmonary artery. There are additional smaller foci of thrombus seen in the subsegmental branches of the right upper lobe, right middle lobe and posterior right lower lobe pulmonary arteries. - Wells' criteria for DVT>6 - Started heparin drip as per DVT/PE protocol -ordered hematology consult for further evaluation and care History of recurrent DVT and PE and s/p IVC filter due to spontaneous blood clot -Patient was on Eliquis 5 mg b.i.d. for last 1 year -Doppler scan of the lower extremity revealed nonocclusive thrombus within the right superficial femoral,and popliteal vein acute occlusive thrombus in the right greater saphenous vein in the thigh and the right common femoral vein. -CT angio of the chest revealed-There is moderate thrombus seen in the superior subsegmental branch of the right lower lobe pulmonary artery. There are additional smaller foci of thrombus seen in the subsegmental branches of the right upper lobe, right middle lobe and posterior right lower lobe pulmonary arteries. -Wells' criteria for DVT>6 -Started heparin drip as per DVT/PE protocol -ordered hematology consult for further evaluation and care Lactic acidosis without sepsis. - Lactic acid trends are 3.0>3.3 - Patient was given 1 L bolus normal saline followed by IV normal saline at 100 mL/hour. - Monitor lactic acid level. 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 steatosis - CT angio revealed- Diffuse fatty infiltration of the liver. cholelithiasis -asymptomatic -CT angio revealed cholelithiasis -follow up lesion surgery Morbid obesity, BMI 79.4 kg/m2 - Counseled patient regarding diet and lifestyle modification. Goal of care discussed with the patient for more than 20 minutes, FULL CODE Plan discussed with Dr. Donohue Plan discussed with: Patient BINA REYNOLDS RESIDENT May 04, 2024 14:47
--- NOTE | 2024-05-04 15:56 | DVHSR ---
APPROVED REPORT EXAM: Two-dimensional and M-mode echocardiogram with Doppler and color Doppler. Blood Pressure: 138/86 mmHg INDICATION Shortness of breath RISK FACTORS Obesity: Height: 5'7", Weight: 234 DIMENSIONS LVDd4.8 (3.8-5.7cm)LA (2D)4.0 (1.9-4.0cm)Aortic Root3.3 (2.0-3.7cm) LVDs3.3 (2.5-4.0cm)LA (MM) (1.9-4.0cm)Aortic Cusp Exc1.9 (1.5-2.0cm) EF (%) 60.0 (55-70%)Rt. Atrium3.7 (1.9-4.0cm)Asc. Aorta cm IVSd1.0 (0.7-1.1cm)RV (D)3.9 (1.8-2.4cm) PWd0.8 (0.7-1.1cm) Mitral Valve MitralMitral Stenosis E wave0.60m/sMV Mean GR.mmHg A wave0.81m/sMV Peak GR.mmHg E/A ratio0.72D MVAcm2 DECEL [id number] 1/2 Timems Aortic Valve Aortic ValveAortic Stenosis V10.76m/Yasmin Mean GR.2mmHg V20.95m/Yasmin Peak GR.4mmHg LVOT Diameter1.9 (1.8-2.4cm)Doppler AVA2.27cm2 Pulmonic Valve V20.83m/s Tricuspid Valve TR Velocity3.25m/s [id number] Other Information Technically limited study due to body habitus. Conclusion lvef 55% by vsiual estimate RV enlarged
[2024-05-04] MEDS ORDERED: WARFARIN SODIUM 5 MG TAB PO ONE (17:00)
[2024-05-04 18:50] LABS: INR 1.07 (0.9-1.15); Partial Thromboplastin Time 45.6 SEC (24.5-34.5); Prothrombin Time 11.3 sec (9.3-11.8)
[2024-05-04] MEDS: APIXABAN 5 MG TAB PO SCH (21:25)
[2024-05-05] VITALS (8 sets, daily range): BP systolic 116–130; BP diastolic 68–88; PULSE 84–90; RESP 16–19; TEMP 97.5–98.7; O2SAT 92–99
[2024-05-05 07:00] LABS: Basophils # (auto) 0.1 10 ^3/uL (0-0.2); Eosinophils # (auto) 0.1 10 ^3/uL (0-0.8); Eosinophils % (auto) 2.1 % (0.0-7.0); Hematocrit 38.7 % (41.0-53.0); Hemoglobin 12.7 g/dL (13.5-17.5); Lymphocytes # (auto) 1.3 10 ^3/uL (0.4-5.4); Lymphocytes % (auto) 23.4 % (10.0-50.0); Mean Corpuscular Hemoglobin 28.4 pg (28.0-32.0); Mean Corpuscular Hgb Conc. 32.9 g/dL (32.0-36.0); Mean Corpuscular Volume 86.2 fL (80.0-100.0); Monocytes # (auto) 0.6 10 ^3/uL (0-1.3); Monocytes % (auto) 11.5 % (0.0-12.0); Neutrophils # (auto) 3.4 10 ^3/uL (1.6-8.6); Platelet Count (auto) 242 10^3/uL (140-450); Red Blood Cells 4.49 10^6/uL (4.5-5.90); Red Cell Distribution Width 19.9 % (11.8-14.3); White Blood Cell 5.5 10^3/uL (4.4-10.8)
[2024-05-05 07:14] LABS: Alanine Aminotransferase 20 U/L (7-40); Albumin 2.9 g/dL (3.2-4.8); Alkaline Phosphatase 142 U/L (46-116); Anion Gap 5 (5-15); Aspartate Aminotransferase 24 U/L (13-40); Blood Urea Nitrogen 10 mg/dL (9-23); Calcium 8.4 mg/dL (8.7-10.4); Carbon Dioxide 28 mmol/L (20-31); Chloride 111 mmol/L (98-107); Glucose 89 mg/dL (74-106); Magnesium 1.9 mg/dL (1.6-2.6); Potassium 4.1 mmol/L (3.5-5.1); Sodium 144 mmol/L (136-145)
[2024-05-05 07:15] LABS: Bilirubin, Total 0.8 mg/dL (0.2-1.0); Total Protein 5.6 g/dL (5.7-8.2)
[2024-05-05 07:50] LABS: INR 1.07 (0.9-1.15); Partial Thromboplastin Time 30.5 SEC (24.5-34.5); Prothrombin Time 11.3 sec (9.3-11.8)
--- NOTE | 2024-05-05 10:22 | DVHPNRES ---
Progress Note Date Seen: May 05, 2024 Resident Creating Document: NORMA GEORGES RESIDENT Has the PT tested + for MRSA If YES, has PT been informed?: No Medical Necessity Reason Pt with a Central, PICC or Fol: No Subjective Review of Systems Patient is 58 years old male with past medical history of recurrent DVT and pulmonary embolism, inclusion body myositis, footdrop, status post IVC filter, CHF came to the ER with a complaint of right leg swelling started 7-8 days before.. Per patient patient started having right leg swelling 7-8 days before. Initially leg was elbow painful 6/10 then gradually pain went away. Patient patient has a recurrent history of DVT and pulmonary embolism at least 6-7 times came in the patient is on Eliquis 5 mg p.o. b.i.d. and patient has inferior vena caval filter in place.. Patient usually goes to [facility] and detailed workup was done but no cause was identified for recurrent DVT and pulmonary embolism. Patient was diagnosed as spontaneous blood clot platelet. Patient also had inferior vena cava filter but even after that patient keep getting pulmonary embolism. As per patient [facility] did some bronchoscopy and tried to clear of the embolus in the lungs but it was partial could not finish the complete clinic of the lungs. Patient reported his brother of dilated cardiomyopathy. The patient mentioned that he has family history significant for CHF due to dilated cardiomyopathy.He is on home oxygen but for last 2 month he was no using any oxygen and his saturation is normal. CXR revealed-No acute cardiopulmonary abnormality. Linear left basilar opacities likely atelectasis or scarring. Doppler study of the lower extremity revealed- Nonocclusive thrombus within the right superficial femoral, and popliteal vein acute occlusive thrombus in the right greater saphenous vein in the thigh and the right common femoral vein. Critical Result: Right lower extremity DVT. CT angio of the chest revealed-1. There is moderate thrombus seen in the superior subsegmental branch of the right lower lobe pulmonary artery. There are additional smaller foci of thrombus seen in the subsegmental branches of the right upper lobe, right middle lobe and posterior right lower lobe pulmonary arteries. Diffuse fatty infiltration of the liver. Cholelithiasis. PMH-DVT and pulmonary embolism, inclusion body myositis, footdrop, status post IVC filter, CHF PSH- IVC filter placement Allergy- penicillin Personal History/ Social History-denies smoking, alcoholism or drug abuse. Family History-Family history is significant for CHF due to dilated cardiomyopathy Patient was seen today at the bedside. Patient reports leg swelling Cardiovascular- deny acute chest pain or shortness of breath or cough or palpitation Respiratory- denies cough or short of breath or wheezing Gastrointestinal- denies any rectal bleeding, nausea or vomiting Musculoskeletal-denies acute joint swelling or tenderness or redness Neurological- denies acute dysarthria, dysphagia, change in vision Psychiatry- denies depression or SI or HI Skin- denies acute rash or purpura Patient was seen today for clinical evaluation. Less than chart reviewed. Initial lab work up revealed lactic acidosis, 3> 3.3, CXR revealed-No acute cardiopulmonary abnormality. Linear left basilar opacities likely atelectasis or scarring. Doppler study of the lower extremity revealed-Nonocclusive thrombus within the right superficial femoral, and popliteal vein acute occlusive thrombus in the right greater saphenous vein in the thigh and the right common femoral vein. Critical Result: Right lower extremity DVT. CT angio of the chest revealed-1. There is moderate thrombus seen in the superior subsegmental branch of the right lower lobe pulmonary artery. There are additional smaller foci of thrombus seen in the subsegmental branches of the right upper lobe, right middle lobe and posterior right lower lobe pulmonary arteries. Diffuse fatty infiltration of the liver. Cholelithiasis. Patient in room air, denied any chest pain or shortness of breath. Right lower extremity swollen and nontender. Heparin 5000 units subcutaneously q.12 hours. Objective vital signs Vital Sign Date Time Temp Pulse Resp B/P (MAP) Pulse Ox O2 Delivery O2 Flow Rate FiO2 05/05/24 05:00 98.2 85 18 124/68 (86) 96 98.2 05/04/24 20:00 Nasal Cannula* 2 28 Total Intake and Output 05/04/24 05/04/24 05/05/24 15:00 23:00 07:00 Intake Total 13 ml 700 ml 475 ml Output Total 400 ml Balance 13 ml 700 ml 75 ml medications Current Medications Medications Dose Ordered Sig/Prateek Route Start Time Stop Time Status Last Admin Dose Admin Sodium Chloride 10 ml Q8HR IV 05/03/24 06:00 05/05/24 06:11 10 ML Acetaminophen/ Hydrocodone Bitart 1 tab Q4HP PRN PO 05/03/24 00:15 Ondansetron HCl 4 mg Q4HP PRN IV 05/03/24 00:15 Apixaban 10 mg BID PO 05/04/24 22:00 05/11/24 21:59 05/05/24 10:10 10 MG Examination General examination- , alert, oriented, conversant HEENT- PEERLA, no acute nasal discharge Cardiovascular- S1-S2 audible, rate and rhythm regular, no murmur Respiratory- CTAB, no wheeze or rhonchi Gastrointestinal-nontender, bowel sound+. Nondistended Musculoskeletal-no acute joint swelling or tenderness or redness# Lower extremity- right lower leg swelling++ Neurological- cranial nerves intact, no acute dysarthria or dysphagia Psychiatry- denies depression or SI or HI Skin- no acute rash or purpura laboratory and microbiology Laboratory Tests 05/05/24 06:29 Test 05/05/24 06:29 Range/Units Serum Glucose 89 74-106 mg/dL Problem List/Assessment/Plan Problem List/Assessment/Plan Assessment/Plan Right lower extremity swelling due to acute DVT -History of recurrent DVT and PE and s/p IVC filter due to spontaneous blood clot -Patient was on Eliquis 5 mg b.i.d. for last 1 year -Doppler scan of the lower extremity revealed nonocclusive thrombus within the right superficial femoral,and popliteal vein acute occlusive thrombus in the right greater saphenous vein in the thigh and the right common femoral vein. -CT angio of the chest revealed-There is moderate thrombus seen in the superior subsegmental branch of the right lower lobe pulmonary artery. There are additional smaller foci of thrombus seen in the subsegmental branches of the right upper lobe, right middle lobe and posterior right lower lobe pulmonary arteries. -Wells' criteria for DVT>6 -Continue heparin drip as per DVT/PE protocol, DC heparin drip at night and transition to eliquis -Start Eliquis 10 mg BID for the first 7 days then switch to 5 mg BID. -ordered hematology consult for further evaluation and care Acute DVT of right lower extremity -History of recurrent DVT and PE and s/p IVC filter due to spontaneous blood clot - Patient was on Eliquis 5 mg b.i.d. for last 1 year - Doppler scan of the lower extremity revealed nonocclusive thrombus within the right superficial femoral,and popliteal vein acute occlusive thrombus in the right greater saphenous vein in the thigh and the right common femoral vein. -CT angio of the chest revealed-There is moderate thrombus seen in the superior subsegmental branch of the right lower lobe pulmonary artery. There are additional smaller foci of thrombus seen in the subsegmental branches of the right upper lobe, right middle lobe and posterior right lower lobe pulmonary arteries. - Wells' criteria for DVT>6 - Started heparin drip as per DVT/PE protocol -ordered hematology consult for further evaluation and care History of recurrent DVT and PE and s/p IVC filter due to spontaneous blood clot -Patient was on Eliquis 5 mg b.i.d. for last 1 year -Doppler scan of the lower extremity revealed nonocclusive thrombus within the right superficial femoral,and popliteal vein acute occlusive thrombus in the right greater saphenous vein in the thigh and the right common femoral vein. -CT angio of the chest revealed-There is moderate thrombus seen in the superior subsegmental branch of the right lower lobe pulmonary artery. There are additional smaller foci of thrombus seen in the subsegmental branches of the right upper lobe, right middle lobe and posterior right lower lobe pulmonary arteries. -Wells' criteria for DVT>6 -Started heparin drip as per DVT/PE protocol -ordered hematology consult for further evaluation and care Lactic acidosis without sepsis. - Lactic acid trends are 3.0>3.3 - Patient was given 1 L bolus normal saline followed by IV normal saline at 100 mL/hour. - Monitor lactic acid level. 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 steatosis - CT angio revealed- Diffuse fatty infiltration of the liver. cholelithiasis -asymptomatic -CT angio revealed cholelithiasis -follow up lesion surgery Morbid obesity, BMI 79.4 kg/m2 - Counseled patient regarding diet and lifestyle modification. Goal of care discussed with the patient for more than 20 minutes, FULL CODE Plan discussed with Dr. Donohue Plan discussed with: Patient My Orders My Orders Orders - BABU,MOHAMMED RESIDENT Procedure Category Date Status Time * Wound Consult CONS 05/04/24 Transmitted Cleanse Wound With FABIAN 05/04/24 In Process Wound Clean 15:00 * Dietary Consult CONS 05/04/24 Transmitted 17:59 NORMA GEORGES May 05, 2024 10:22
--- NOTE | 2024-05-05 12:43 | DVHINCON2 ---
Date of service: May 05, 2024 Referring Physician Vanesa Schmitz MD Reason for Consultation DVT, PE History of Present Illness Houston Polanco is a 58 years old male with past medical history of recurrent DVT and pulmonary embolism, inclusion body myositis, footdrop, status post IVC filter, CHF came to the ER with a complaint of right lower extremity swelling of one week duration. Patient has a recurrent history of DVT and pulmonary embolism on Eliquis 5 mg p.o. b.i.d. He ran out of his Eliquis approximately 2 weeks ago, and was not taking any anticoagulation for the last 2 weeks, after which he started noticing progressive right lower extremity swelling. On presentation, patient completed the following imaging studies: >>05/02/2024 Lower extremity doppler: Nonocclusive thrombus within the right superficial femoral, and popliteal vein acute occlusive thrombus in the right greater saphenous vein in the thigh and the right common femoral vein >>CT angiography showed: 1. There is moderate thrombus seen in the superior subsegmental branch of the right lower lobe pulmonary artery. There are additional smaller foci of thrombus seen in the subsegmental branches of the right upper lobe, right middle lobe and posterior right lower lobe pulmonary arteries. 2. Diffuse fatty infiltration of the liver. 3. Cholelithiasis. History: History of inclusion body myositis, psoriatic arthritis,historyof LLE DVT s/p IVC filter in 1994 and6 month course of warfarin (greenfiled IVC filter). CTPA 03/28/21 showing extensive right lobar, segmental, and subsegmental pulmonary emboli and some left upper and lower lobar segmental and subsegmental pulmonary emboli. CT evidence of right heart strain. TTE concerning for severe decrease in RV function, severely dilated right ventricle, and RVSP 64 mmHg. BNP was elevated at 3451. LE US showed nonocclusive right popliteal DVT. Patient initiated on heparin gtt and PERT activated. Patient underwent pulmonary artery angiogram and aspiration thrombectomy on 03/30/2021 with [facility]. It was noted that initial PA pressure 66 mmHg and slight decrease in PA pressure 64 mmHg. PA angiogram shows reduced right inter lobar and upper lobe segmental clot burden with mildly improved parenchymal opacification. CT abdomen/pelvis demonstrated intact infrarenal IVC filter. The majority of the IVC filter remains intracaval, however its limbs extend slightly extracaval. Subsequently, he was transitioned to Eliquis (03/31) and discharged on home oxygen at 3 lpm. Past Medical History Inclusion body myositis Recurrent DVT and PE, s/p IVC filter placement CHF Morbid Obesity Family History: Diabetes mellitus G8 MOTHER FH: CHF (congestive heart failure) FH: cardiovascular disease G8 BROTHER Inclusion body myositis G8 BROTHER Spinal stenosis G8 FATHER Allergies: Coded Allergies: Penicillins (Verified Allergy, Unknown, 11/07/17) Home Meds Active Scripts Hydrocodone-Acetaminophen (Hydrocodone Bitartrate/AC 10-325 mg) 1 Tab Tab, 1 TAB PO Q6HP PRN for 5 Days, #20 TAB Prov:ARIEL EVANS MD 01/20/23 Reported Medications Secukinumab (Cosentyx Sensoready Pen) 150 Mg/Ml Inj, SC [id number] 05/30/22 Duloxetine HCl (Duloxetine HCl) 30 Mg Cap, 1 CAP PO DAILYPRN 05/30/22 Gabapentin (Gabapentin) 800 Mg Tab, 1 TAB PO TID 05/30/22 Apixaban Base (ELIQUIS) 5 Mg Tab, 1 TAB PO BID 05/30/22 Cyclobenzaprine HCl (Cyclobenzaprine Hydrochlo) 10 Mg Tab, 1 TAB PO TID 05/30/22 Morphine Sulfate (Morphine Sulfate) 15 Mg Tab, 1 TAB PO TID PRN for PAIN SCALE 7 THRU 10 05/30/22 Current Medications Current Medications Medications (Trade) Dose Ordered Sig/Prateek Route PRN Reason Start Time Stop Time Status Last Admin Apixaban (Eliquis) 10 mg BID PO 05/04/24 22:00 05/11/24 21:59 05/05/24 10:10 Review of Systems Negative, otherwise as stated above. Vital Signs Vital Signs Date Time Temp Pulse Resp B/P (MAP) Pulse Ox O2 Delivery O2 Flow Rate FiO2 05/05/24 09:00 98.3 88 16 130/82 (98) 96 98.3 05/05/24 08:00 Nasal Cannula* 2 28 Physical Exam General Appearance: Alert, Oriented X3, Cooperative, No acute distress HEENT: Atraumatic, PERRLA, EOMI, Mucous membr. moist/pink Respiratory: Clear to auscultation, Normal air movement Cardiovascular: Regular rate, Normal S1, Normal S2, No murmurs Abdominal: Normal bowel sounds, Soft, No tenderness, No hepatospenomegaly, No masses Extremities: No clubbing, No cyanosis, No edema, Normal pulses, + right lower extremity edema Skin: No rashes, No breakdown, No significant lesion Neuro: Normal speech, Normal tone, Sensation intact, Cranial nerves 3-12 NL, Reflexes 2+, Other (Generalized weakness) Psych/Mental Status: Mental status NL, Mood NL Labs/Diagnostic Data Labs Test 05/05/24 06:29 05/03/24 12:41 05/02/24 23:47 05/02/24 22:45 Range/Units White Blood Count 5.5 4.4-10.8 10^3/uL Red Blood Count 4.49 L 4.5-5.90 10^6/uL Hemoglobin 12.7 L 13.5-17.5 g/dL Hematocrit 38.7 L 41.0-53.0 % Mean Corpuscular Volume 86.2 80.0-100.0 fL Mean Corpuscular Hemoglobin 28.4 28.0-32.0 pg Mean Corpuscular Hemoglobin Concent 32.9 32.0-36.0 g/dL Red Cell Distribution Width 19.9 H 11.8-14.3 % Platelet Count 242 140-450 10^3/uL Mean Platelet Volume 7.7 6.9-10.8 fL Neutrophils (%) (Auto) 62.0 37.0-80.0 % Lymphocytes (%) (Auto) 23.4 10.0-50.0 % Monocytes (%) (Auto) 11.5 0.0-12.0 % Eosinophils (%) (Auto) 2.1 0.0-7.0 % Basophils (%) (Auto) 1.0 0.0-2.0 % Neutrophils # (Auto) 3.4 1.6-8.6 10 ^3/uL Lymphocytes # (Auto) 1.3 0.4-5.4 10 ^3/uL Monocytes # (Auto) 0.6 0-1.3 10 ^3/uL Eosinophils # (Auto) 0.1 0-0.8 10 ^3/uL Basophils # (Auto) 0.1 0-0.2 10 ^3/uL Nucleated Red Blood Cells 0.0 % Prothrombin Time 11.3 9.3-11.8 sec Prothrombin Time INR 1.07 0.9-1.15 Activated Partial Thromboplast Time 30.5 24.5-34.5 SEC Sodium Level 144 136-145 mmol/L Potassium Level 4.1 3.5-5.1 mmol/L Chloride Level 111 H 98-107 mmol/L Carbon Dioxide Level 28 20-31 mmol/L Anion Gap 5 5-15 Blood Urea Nitrogen 10 9-23 mg/dL Creatinine 0.77 0.700-1.30 mg/dL Glomerular Filtration Rate Calc 104 >90 mL/min BUN/Creatinine Ratio 13.0 10.0-20.0 Serum Glucose 89 74-106 mg/dL Calcium Level 8.4 L 8.7-10.4 mg/dL Magnesium Level 1.9 1.6-2.6 mg/dL Total Bilirubin 0.8 0.2-1.0 mg/dL Aspartate Amino Transferase (AST) 24 13-40 U/L Alanine Aminotransferase (ALT) 20 7-40 U/L Alkaline Phosphatase 142 H 46-116 U/L Total Protein 5.6 L 5.7-8.2 g/dL Albumin 2.9 L 3.2-4.8 g/dL Urine Color Yellow Yellow Urine Clarity Clear Clear Urine pH 6.0 5.0-9.0 Urine Specific [place] > 1.050 H 1.001-1.035 Urine Protein Trace H Negative Urine Ketones Negative Negative Urine Blood Negative Negative /uL Urine Nitrite Negative Negative Urine Bilirubin Negative Negative Urine Urobilinogen 4 H Negative mg/dL Urine Leukocyte Esterase Negative Negative /uL Urine RBC 1 0 - 3 /hpf Urine WBC 2 0 - 3 /hpf Urine Squamous Epithelial Cells None seen <5 /hpf Urine Bacteria None seen None Seen /hpf Urine Glucose Normal Normal mg/dL Urine Opiates Screen Neg NEGATIVE Urine Fentanyl Screen Neg NEGATIVE Urine Barbiturates Screen Neg NEGATIVE Urine Phencyclidine Screen Neg NEGATIVE Urine Amphetamines Screen Neg NEGATIVE Urine Benzodiazepines Screen Neg NEGATIVE Urine Cocaine Screen Neg NEGATIVE Urine Cannabinoids Screen Neg NEGATIVE Lactic Acid Level 3.3 *H 0.4-2.0 mmol/L Troponin I High Sensitivity 3 L </=54 ng/L Test 05/02/24 21:47 Range/Units B-Type Natriuretic Peptide 42.03 0-100 pg/mL Lipase 30 12-53 U/L Assessment Acute pulmonary embolism and right lower extremity DVT, due to noncompliance with Eliquis. History of DVT and PE, on Eliquis. Plan/Recommendation --Upon admission, patient was initiated on heparin drip. He has since been transitioned to Eliquis 10 mg twice daily. Given the patient developed the DVT due to noncompliance, he has not had failure to Eliquis. Therefore, reasonable to resume Eliquis at the current time. --In terms of hypercoagulable workup, this can be completed as outpatient. Patient may choose to follow up with [facility], as per his preference. Plan discussed with: Patient, Spouse GIORGIO DASH MD May 05, 2024 12:43
--- NOTE | 2024-05-05 14:33 | DVHDSRES ---
Discharge Summary Date of Admission Resident Creating Document: NORMA GEORGES RESIDENT May 03, 2024 at 00:13 Admitting Diagnosis Right leg swelling Labs/Diagnostic Data: Laboratory Results Test 05/05/24 06:29 05/03/24 12:41 05/02/24 23:47 05/02/24 22:45 White Blood Count 5.5 10^3/uL (4.4-10.8) Red Blood Count 4.49 10^6/uL (4.5-5.90) Hemoglobin 12.7 g/dL (13.5-17.5) Hematocrit 38.7 % (41.0-53.0) Mean Corpuscular Volume 86.2 fL (80.0-100.0) Mean Corpuscular Hemoglobin 28.4 pg (28.0-32.0) Mean Corpuscular Hemoglobin Concent 32.9 g/dL (32.0-36.0) Red Cell Distribution Width 19.9 % (11.8-14.3) Platelet Count 242 10^3/uL (140-450) Mean Platelet Volume 7.7 fL (6.9-10.8) Neutrophils (%) (Auto) 62.0 % (37.0-80.0) Lymphocytes (%) (Auto) 23.4 % (10.0-50.0) Monocytes (%) (Auto) 11.5 % (0.0-12.0) Eosinophils (%) (Auto) 2.1 % (0.0-7.0) Basophils (%) (Auto) 1.0 % (0.0-2.0) Neutrophils # (Auto) 3.4 10 ^3/uL (1.6-8.6) Lymphocytes # (Auto) 1.3 10 ^3/uL (0.4-5.4) Monocytes # (Auto) 0.6 10 ^3/uL (0-1.3) Eosinophils # (Auto) 0.1 10 ^3/uL (0-0.8) Basophils # (Auto) 0.1 10 ^3/uL (0-0.2) Nucleated Red Blood Cells 0.0 % Prothrombin Time 11.3 sec (9.3-11.8) Prothrombin Time INR 1.07 (0.9-1.15) Activated Partial Thromboplast Time 30.5 SEC (24.5-34.5) Sodium Level 144 mmol/L (136-145) Potassium Level 4.1 mmol/L (3.5-5.1) Chloride Level 111 mmol/L (98-107) Carbon Dioxide Level 28 mmol/L (20-31) Anion Gap 5 (5-15) Blood Urea Nitrogen 10 mg/dL (9-23) Creatinine 0.77 mg/dL (0.700-1.30) Glomerular Filtration Rate Calc 104 mL/min (>90) BUN/Creatinine Ratio 13.0 (10.0-20.0) Serum Glucose 89 mg/dL (74-106) Calcium Level 8.4 mg/dL (8.7-10.4) Magnesium Level 1.9 mg/dL (1.6-2.6) Total Bilirubin 0.8 mg/dL (0.2-1.0) Aspartate Amino Transferase (AST) 24 U/L (13-40) Alanine Aminotransferase (ALT) 20 U/L (7-40) Alkaline Phosphatase 142 U/L (46-116) Total Protein 5.6 g/dL (5.7-8.2) Albumin 2.9 g/dL (3.2-4.8) Urine Color Yellow (Yellow) Urine Clarity Clear (Clear) Urine pH 6.0 (5.0-9.0) Urine Specific Globe > 1.050 (1.001-1.035) Urine Protein Trace (Negative) Urine Ketones Negative (Negative) Urine Blood Negative /uL (Negative) Urine Nitrite Negative (Negative) Urine Bilirubin Negative (Negative) Urine Urobilinogen 4 mg/dL (Negative) Urine Leukocyte Esterase Negative /uL (Negative) Urine RBC 1 /hpf (0 - 3) Urine WBC 2 /hpf (0 - 3) Urine Squamous Epithelial Cells None seen /hpf (<5) Urine Bacteria None seen /hpf (None Seen) Urine Glucose Normal mg/dL (Normal) Urine Opiates Screen Neg (NEGATIVE) Urine Fentanyl Screen Neg (NEGATIVE) Urine Barbiturates Screen Neg (NEGATIVE) Urine Phencyclidine Screen Neg (NEGATIVE) Urine Amphetamines Screen Neg (NEGATIVE) Urine Benzodiazepines Screen Neg (NEGATIVE) Urine Cocaine Screen Neg (NEGATIVE) Urine Cannabinoids Screen Neg (NEGATIVE) Lactic Acid Level 3.3 mmol/L (0.4-2.0) Troponin I High Sensitivity 3 ng/L (</=54) Test 05/02/24 21:47 B-Type Natriuretic Peptide 42.03 pg/mL (0-100) Lipase 30 U/L (12-53) Other Laboratory Tests 05/05/24 06:29 Brief Hx & Hospital Course: Patient is 58 years old male with past medical history of recurrent DVT and pulmonary embolism, inclusion body myositis, footdrop, status post IVC filter, CHF came to the ER with a complaint of right leg swelling started 7-8 days before.. Per patient patient started having right leg swelling 7-8 days before. Initially leg was elbow painful 6/10 then gradually pain went away. Patient patient has a recurrent history of DVT and pulmonary embolism at least 6-7 times came in the patient is on Eliquis 5 mg p.o. b.i.d. and patient has inferior vena caval filter in place.. Patient usually goes to [facility] and detailed workup was done but no cause was identified for recurrent DVT and pulmonary embolism. Patient was diagnosed as spontaneous blood clot platelet. Patient also had inferior vena cava filter but even after that patient keep getting pulmonary embolism. As per patient [facility] did some bronchoscopy and tried to clear of the embolus in the lungs but it was partial could not finish the complete clinic of the lungs. Patient reported his brother of dilated cardiomyopathy. The patient mentioned that he has family history significant for CHF due to dilated cardiomyopathy.He is on home oxygen but for last 2 month he was no using any oxygen and his saturation is normal. CXR revealed-No acute cardiopulmonary abnormality. Linear left basilar opacities likely atelectasis or scarring. Doppler study of the lower extremity revealed- Nonocclusive thrombus within the right superficial femoral, and popliteal vein acute occlusive thrombus in the right greater saphenous vein in the thigh and the right common femoral vein. Critical Result: Right lower extremity DVT. CT angio of the chest revealed-1. There is moderate thrombus seen in the superior subsegmental branch of the right lower lobe pulmonary artery. There are additional smaller foci of thrombus seen in the subsegmental branches of the right upper lobe, right middle lobe and posterior right lower lobe pulmonary arteries. Diffuse fatty infiltration of the liver. Cholelithiasis. PMH-DVT and pulmonary embolism, inclusion body myositis, footdrop, status post IVC filter, CHF PSH- IVC filter placement Allergy- penicillin Personal History/ Social History-denies smoking, alcoholism or drug abuse. Family History-Family history is significant for CHF due to dilated cardiomyopathy Patient was seen today at the bedside. Patient reports leg swelling Cardiovascular- deny acute chest pain or shortness of breath or cough or palpitation Respiratory- denies cough or short of breath or wheezing Gastrointestinal- denies any rectal bleeding, nausea or vomiting Musculoskeletal-denies acute joint swelling or tenderness or redness Neurological- denies acute dysarthria, dysphagia, change in vision Psychiatry- denies depression or SI or HI Skin- denies acute rash or purpura General examination- , alert, oriented, conversant HEENT- PEERLA, no acute nasal discharge Cardiovascular- S1-S2 audible, rate and rhythm regular, no murmur Respiratory- CTAB, no wheeze or rhonchi Gastrointestinal-nontender, bowel sound+. Nondistended Musculoskeletal-no acute joint swelling or tenderness or redness# Lower extremity- right lower leg swelling++ Neurological- cranial nerves intact, no acute dysarthria or dysphagia Psychiatry- denies depression or SI or HI Skin- no acute rash or purpura Patient was seen today for clinical evaluation. Less than chart reviewed. Initial lab work up revealed lactic acidosis, 3> 3.3, CXR revealed-No acute cardiopulmonary abnormality. Linear left basilar opacities likely atelectasis or scarring. Doppler study of the lower extremity revealed-Nonocclusive thrombus within the right superficial femoral, and popliteal vein acute occlusive thrombus in the right greater saphenous vein in the thigh and the right common femoral vein. Critical Result: Right lower extremity DVT. CT angio of the chest revealed-1. There is moderate thrombus seen in the superior subsegmental branch of the right lower lobe pulmonary artery. There are additional smaller foci of thrombus seen in the subsegmental branches of the right upper lobe, right middle lobe and posterior right lower lobe pulmonary arteries. Diffuse fatty infiltration of the liver. Cholelithiasis. Patient in room air, denied any chest pain or shortness of breath. Right lower extremity swollen and nontender. Heparin 5000 units subcutaneously q.12 hours. Discharge Statement: "Patient was advised to return to the ER or call 911 if any headaches, dizziness, shortness of breath, chest pain, abdominal pain, bleeding, fevers, or worsening of medical condition. Patient was counseled about treatment plan, medications, possible side effects, patientverbalized understanding. All questions were answered to the best of my ability. This discharge took greater then 30 minutes in planning, reviewing documentation, counseling the patient, and discussing with other team members." ASSESSMENT ASSESSMENT Assessment NORMA GEORGES RESIDENT May 05, 2024 14:33
--- NOTE | 2024-05-05 16:16 | DVHDSRES ---
Discharge Summary Date of Admission Resident Creating Document: NORMA GEORGES RESIDENT May 03, 2024 at 00:13 Date of Discharge: May 05, 2024 Admitting Diagnosis Right leg swelling and pain Labs/Diagnostic Data: Laboratory Results Test 05/05/24 06:29 05/03/24 12:41 05/02/24 23:47 05/02/24 22:45 White Blood Count 5.5 10^3/uL (4.4-10.8) Red Blood Count 4.49 10^6/uL (4.5-5.90) Hemoglobin 12.7 g/dL (13.5-17.5) Hematocrit 38.7 % (41.0-53.0) Mean Corpuscular Volume 86.2 fL (80.0-100.0) Mean Corpuscular Hemoglobin 28.4 pg (28.0-32.0) Mean Corpuscular Hemoglobin Concent 32.9 g/dL (32.0-36.0) Red Cell Distribution Width 19.9 % (11.8-14.3) Platelet Count 242 10^3/uL (140-450) Mean Platelet Volume 7.7 fL (6.9-10.8) Neutrophils (%) (Auto) 62.0 % (37.0-80.0) Lymphocytes (%) (Auto) 23.4 % (10.0-50.0) Monocytes (%) (Auto) 11.5 % (0.0-12.0) Eosinophils (%) (Auto) 2.1 % (0.0-7.0) Basophils (%) (Auto) 1.0 % (0.0-2.0) Neutrophils # (Auto) 3.4 10 ^3/uL (1.6-8.6) Lymphocytes # (Auto) 1.3 10 ^3/uL (0.4-5.4) Monocytes # (Auto) 0.6 10 ^3/uL (0-1.3) Eosinophils # (Auto) 0.1 10 ^3/uL (0-0.8) Basophils # (Auto) 0.1 10 ^3/uL (0-0.2) Nucleated Red Blood Cells 0.0 % Prothrombin Time 11.3 sec (9.3-11.8) Prothrombin Time INR 1.07 (0.9-1.15) Activated Partial Thromboplast Time 30.5 SEC (24.5-34.5) Sodium Level 144 mmol/L (136-145) Potassium Level 4.1 mmol/L (3.5-5.1) Chloride Level 111 mmol/L (98-107) Carbon Dioxide Level 28 mmol/L (20-31) Anion Gap 5 (5-15) Blood Urea Nitrogen 10 mg/dL (9-23) Creatinine 0.77 mg/dL (0.700-1.30) Glomerular Filtration Rate Calc 104 mL/min (>90) BUN/Creatinine Ratio 13.0 (10.0-20.0) Serum Glucose 89 mg/dL (74-106) Calcium Level 8.4 mg/dL (8.7-10.4) Magnesium Level 1.9 mg/dL (1.6-2.6) Total Bilirubin 0.8 mg/dL (0.2-1.0) Aspartate Amino Transferase (AST) 24 U/L (13-40) Alanine Aminotransferase (ALT) 20 U/L (7-40) Alkaline Phosphatase 142 U/L (46-116) Total Protein 5.6 g/dL (5.7-8.2) Albumin 2.9 g/dL (3.2-4.8) Urine Color Yellow (Yellow) Urine Clarity Clear (Clear) Urine pH 6.0 (5.0-9.0) Urine Specific [place] > 1.050 (1.001-1.035) Urine Protein Trace (Negative) Urine Ketones Negative (Negative) Urine Blood Negative /uL (Negative) Urine Nitrite Negative (Negative) Urine Bilirubin Negative (Negative) Urine Urobilinogen 4 mg/dL (Negative) Urine Leukocyte Esterase Negative /uL (Negative) Urine RBC 1 /hpf (0 - 3) Urine WBC 2 /hpf (0 - 3) Urine Squamous Epithelial Cells None seen /hpf (<5) Urine Bacteria None seen /hpf (None Seen) Urine Glucose Normal mg/dL (Normal) Urine Opiates Screen Neg (NEGATIVE) Urine Fentanyl Screen Neg (NEGATIVE) Urine Barbiturates Screen Neg (NEGATIVE) Urine Phencyclidine Screen Neg (NEGATIVE) Urine Amphetamines Screen Neg (NEGATIVE) Urine Benzodiazepines Screen Neg (NEGATIVE) Urine Cocaine Screen Neg (NEGATIVE) Urine Cannabinoids Screen Neg (NEGATIVE) Lactic Acid Level 3.3 mmol/L (0.4-2.0) Troponin I High Sensitivity 3 ng/L (</=54) Test 05/02/24 21:47 B-Type Natriuretic Peptide 42.03 pg/mL (0-100) Lipase 30 U/L (12-53) Other Laboratory Tests 05/05/24 06:29 Brief Hx & Hospital Course: Patient is 58 years old male with past medical history of recurrent DVT and pulmonary embolism, inclusion body myositis, footdrop, status post IVC filter, CHF came to the ER with a complaint of right leg swelling started 7-8 days before.. Per patient patient started having right leg swelling 7-8 days before. Initially leg was elbow painful / then gradually pain went away. Patient patient has a recurrent history of DVT and pulmonary embolism at least 6-7 times came in the patient is on Eliquis 5 mg p.o. b.i.d. and patient has inferior vena caval filter in place.. Patient usually goes to [facility] and detailed workup was done but no cause was identified for recurrent DVT and pulmonary embolism. Patient was diagnosed as spontaneous blood clot platelet. Patient also had inferior vena cava filter but even after that patient keep getting pulmonary embolism. Patient did not take his Eliquis last 2 weeks before coming to hospital. As he said he ran out of the prescription and forgot to ask for refill. As per patient [facility] did some bronchoscopy and tried to clear of the embolus in the lungs but it was partial could not finish the complete clinic of the lungs. Patient reported his brother of dilated cardiomyopathy. The patient mentioned that he has family history significant for CHF due to dilated cardiomyopathy.He is on home oxygen but for last 2 month he was no using any oxygen and his saturation is normal. CXR revealed-No acute cardiopulmonary abnormality. Linear left basilar opacities likely atelectasis or scarring. Doppler study of the lower extremity revealed- Nonocclusive thrombus within the right superficial femoral, and popliteal vein acute occlusive thrombus in the right greater saphenous vein in the thigh and the right common femoral vein. Critical Result: Right lower extremity DVT. CT angio of the chest revealed-1. There is moderate thrombus seen in the superior subsegmental branch of the right lower lobe pulmonary artery. There are additional smaller foci of thrombus seen in the subsegmental branches of the right upper lobe, right middle lobe and posterior right lower lobe pulmonary arteries. Diffuse fatty infiltration of the liver. Cholelithiasis. 2D revealed LVEF 55% visual estimate, RV enlarged, RVSP 50 mm of mercury. During hospital course patient was treated with IV heparin initially then switched to Eliquis 10 mg p.o. b.i.d. for 7 days. plan Is to switch to Eliquis 5 mg b.i.d. standing. Patient was also seen by hemato Oncology, recommendation reviewed and appreciated. Patient's leg swelling was getting better. No acute sign or symptom of chest pain or shortness of breath. As per patient he easily gets short of breath on exertion but no acute exertional or resting was noted during hospitalization. Patient was given a choice for embolectomy but patient denied. Patient wants to try with the medication as because he had recurrent DVT with pulmonary embolism. As per patient if it does not get better then he might think about it later on. Patient is awake, alert, oriented and patient has a right to choose. Patient had no acute sign or symptom of external bleeding. Patient tolerating Eliquis well. Med were sent to the pharmacy electronically. Patient was advised to follow up with the hemato oncology in 1- 2 weeks and also to follow up with the primary care physician in 1 week. Patient was hemodynamically stable on discharge PMH-DVT and pulmonary embolism, inclusion body myositis, footdrop, status post IVC filter, CHF PSH- IVC filter placement Allergy- penicillin Personal History/ Social History-denies smoking, alcoholism or drug abuse. Family History-Family history is significant for CHF due to dilated cardiomyopathy Patient was seen today at the bedside. Patient reports leg swelling Cardiovascular- deny acute chest pain or shortness of breath or cough or palpitation Respiratory- denies cough or short of breath or wheezing Gastrointestinal- denies any rectal bleeding, nausea or vomiting Musculoskeletal-denies acute joint swelling or tenderness or redness Neurological- denies acute dysarthria, dysphagia, change in vision Psychiatry- denies depression or SI or HI Skin- denies acute rash or purpura General examination- , alert, oriented, conversant HEENT- PEERLA, no acute nasal discharge Cardiovascular- S1-S2 audible, rate and rhythm regular, no murmur Respiratory- CTAB, no wheeze or rhonchi Gastrointestinal-nontender, bowel sound+. Nondistended Musculoskeletal-no acute joint swelling or tenderness or redness# Lower extremity- right lower leg swelling++ Neurological- cranial nerves intact, no acute dysarthria or dysphagia Psychiatry- denies depression or SI or HI Skin- no acute rash or purpura Operations or Procedures Diagnostic Imaging Report : [id number] Signed PATIENT: BRADLY PARIS ACCT: [id number] UNIT: [id number] : 1965 LOC: ER ROOM / BED: / AGE / SEX: 58 / M ADM STATUS: REG ER SERVICE 34 ORDERING PHYSICIAN: PHILL MAHONEY PAC PROCEDURE(s): RLDVT - RT Lower DVT REASON: DVT rule out ORDER NUMBER(s): [id number], ACCESSION NUMBER(s): [id number] CLINICAL HISTORY: DVT rule out TECHNIQUE: Color and duplex doppler imaging of the right lower extremity veins was performed. Vessel compression if possible was also performed. WID: COMPARISON: None FINDINGS: Greater saphenous vein in the groin demonstrates no flow or compression. Right common femoral vein: Hypoechoic filling defect without flow. Noncompressible. Right femoral vein: No compressibility . Flow is demonstrated. Right popliteal vein: Noncompressible. Flow is demonstrated Proximal calf veins are normally compressible. IMPRESSION: Nonocclusive thrombus within the right superficial femoral, and popliteal vein acute occlusive thrombus in the right greater saphenous vein in the thigh and the right common femoral vein Critical Result: Right lower extremity DVT Findings discussed with Dr Mahoney by the store associate .. ATED BY: SILVANO ORTEGA MD DICTATED DATE/TIME: 05/02/242257 SIGNED BY: SILVANO ORTEGA MD SIGNED DATE/TIME: 05/02/242257 CC: DIAGNOSTIC IMAGING Diagnostic Imaging Report : [id number] Signed PATIENT: BRADLY PARIS ACCT: [id number] UNIT: [id number] : 1965 LOC: OVERFLOW ROOM / BED: 1011-ER / A AGE / SEX: 58 / M ADM STATUS: ADM IN SERVICE 0039 ORDERING PHYSICIAN: DAPHNE LANDEROS RESIDENT PROCEDURE(s): CXRP - CHEST PORTABLE REASON: shortness of breath ORDER NUMBER(s): [id number], ACCESSION NUMBER(s): [id number] EXAM: XY CHEST PORTABLE CLINICAL HISTORY: shortness of breath TECHNIQUE: Single view of the chest WID: COMPARISON: None FINDINGS: Lines and tubes: There is a loop recorder device projecting over the left perihilar region. Chest: The heart size and pulmonary vasculature is within normal limits. Calcified plaque projects over the aortic arch. No pleural effusion, pneumothorax, or consolidation. Linear left basilar opacities The osseous structures are grossly intact. IMPRESSION: No acute cardiopulmonary abnormality. Linear left basilar opacities likely atelectasis or scarring ATED BY: SILVANO ORTEGA MD DICTATED DATE/TIME: 05/03/24122 SIGNED BY: SILVANO ORTEGA MD SIGNED DATE/TIME: 05/03/24122 CC: Diagnostic Imaging Report : [id number] Signed PATIENT: BRADLY PARIS ACCT: [id number] UNIT: [id number] : 1965 LOC: OVERFLOW ROOM / BED: [address] [place] [address] / A AGE / SEX: 58 / M ADM STATUS: ADM IN SERVICE 0755 ORDERING PHYSICIAN: DAPHNE LANDEROS RESIDENT PROCEDURE(s): CTACH - CT ANGIO CHEST CONTRAST REASON: To rule out PE ORDER NUMBER(s): [id number], ACCESSION NUMBER(s): [id number] CTA CHEST INDICATION: To rule out PE TECHNIQUE: Multidetector CTA of the chest was performed of the chest with 100 cc of intravenous contrast. PULMONARY ANGIOGRAPHY PROTOCOL was utilized using a bolus-tracking technique centered on the main pulmonary artery. Axial, coronal and sagittal multiplanar and MIP reformats were performed. Radiation Dose Information: CT Dose: CTDI volume is 8.88 mGy. Dose-length product is 831.57 mGy*cm The dose indicators for CT are the volume Computed Tomography (CT) Dose Index (CTDIvol) and the Dose Length Product (DLP), and are measured in units of mGy and mGy-cm, respectively. These indicators are not patient dose, but values generated from the CT scanner acquisition factors. The report includes radiation exposure data for exposures received during this examination. Comparison: None. Findings: Pulmonary artery: There is moderate thrombus seen in the subsegmental branch of the superior right lower lobe pulmonary artery. There is additional smaller thrombus seen in the subsegmental branch of the right upper lobe pulmonary artery. There is also minimal thrombus seen in the subsegmental branches of the right middle lobe pulmonary artery and posterior right lower lobe pulmonary artery. There is no thrombus seen in the left pulmonary arteries.. The main pulmonary artery is normal in size. Lungs: No focal consolidation, pulmonary mass, or suspicious pulmonary nodule. There is mild scarring versus atelectasis in the posterior lung bases. Heart/Vascular Structures: Normal heart size. The thoracic aorta demonstrates normal caliber. There is no evidence of pericardial effusion. Lymph Nodes: There is no evidence of mediastinal, hilar or axillary lymphadenopathy. Pleura: No pleural effusion or significant pneumothorax. Musculoskeletal: No acute osseous abnormality. Upper abdomen: Is diffuse fatty infiltration. There are small calcified gallstones within the gallbladder. There are postsurgical changes related to gastric bypass surgery. Remaining visualized intra-abdominal structures appear within normal limits. IMPRESSION: 1. There is moderate thrombus seen in the superior subsegmental branch of the right lower lobe pulmonary artery. There are additional smaller foci of thrombus seen in the subsegmental branches of the right upper lobe, right middle lobe and posterior right lower lobe pulmonary arteries. 2. Diffuse fatty infiltration of the liver. 3. Cholelithiasis. The results were discussed with nurse practitioner Ting Pickett by Dr. Jona Solares on 05/03/2024, 904 hours. HS:Y ATED BY: JONA SOLARES MD DICTATED DATE/TIME: 05/03/24904 SIGNED BY: JONA SOLARES MD SIGNED DATE/TIME: 05/03/24904 CC: [place] [id number] Ph: [phone] DIAGNOSTIC IMAGING Diagnostic Imaging Report : [id number] Signed PATIENT: BRADLY PARIS ACCT: [id number] UNIT: [id number] : 1965 [facility] AGE / SEX: 58 / M ADM STATUS: ADM IN SERVICE 0756 ORDERING PHYSICIAN: DAPHNE LANDEROS PROCEDURE(s): ECIDC - ECHO 2D MODE CARDIAC DOP REASON: shortness of breath ORDER NUMBER(s): [id number], ACCESSION NUMBER(s): [id number] APPROVED REPORT EXAM: Two-dimensional and M-mode echocardiogram with Doppler and color Doppler. Blood Pressure: 138/86 mmHg INDICATION Shortness of breath RISK FACTORS Obesity: Height: 5'7", Weight: 234 DIMENSIONS LVDd 4.8 (3.8-5.7cm) LA (2D) 4.0 (1.9-4.0cm) Aortic Root 3.3 (2.0- 3.7cm) LVDs 3.3 (2.5-4.0cm) LA (MM) (1.9-4.0cm) Aortic Cusp Exc 1.9 (1.5- 2.0cm) EF (%) 60.0 (55-70%) Rt. Atrium 3.7 (1.9-4.0cm) Asc. Aorta cm IVSd 1.0 (0.7-1.1cm) RV (D) 3.9 (1.8-2.4cm) PWd 0.8 (0.7-1.1cm) Mitral Valve Mitral Mitral Stenosis E wave 0.60m/s MV Mean GR. mmHg A wave 0.81m/s MV Peak GR. mmHg E/A ratio 0.7 2D MVA cm2 DECEL Time 216ms PRESS 1/2 Time ms Aortic Valve Aortic Valve Aortic Stenosis V1 0.76m/s AO Mean GR. 2mmHg V2 0.95m/s AO Peak GR. 4mmHg LVOT Diameter 1.9 (1.8-2.4cm) Doppler ADEOLA 2.27cm2 Pulmonic Valve V2 0.83m/s Tricuspid Valve TR Velocity 3.25m/s RVSP 50mmHg Other Information Technically limited study due to body habitus. Conclusion lvef 55% by vsiual estimate RV enlarged SIGNED BY: JAZZMINE LOGAN MD SIGNED DATE/TIME: 05/04/24 4824 CC: Condition at Discharge: Stable Final Diagnosis/Problems List Acute hypoxic respiratory failure likely due torecurrent PE Right lower extremity swelling due to acute DVT Acute DVT of right lower extremity History of recurrent DVT and PE and s/p IVC filter due to spontaneous blood clot Chronic CHF due to dilated cardiomyopathy Lactic acidosis without sepsis. Inclusion body myositis Isolated elevation of alkaline phosphatase, rule out bone patholog Hepatic steatosis Cholelithiasis Obesity Discharge Disposition: Home Discharge Statement: "Patient was advised to return to the ER or call 911 if any headaches, dizziness, shortness of breath, chest pain, abdominal pain, bleeding, fevers, or worsening of medical condition. Patient was counseled about treatment plan, medications, possible side effects, patientverbalized understanding. All questions were answered to the best of my ability. This discharge took greater then 30 minutes in planning, reviewing documentation, counseling the patient, and discussing with other team members." ASSESSMENT ASSESSMENT Assessment NORMA GEORGES RESIDENT May 05, 2024 16:16
[2024-05-06 01:00] VITALS: BP 135/86; PULSE 94; RESP 20; TEMP 98.2; O2SAT 96
[2024-05-06 05:00] VITALS: BP 114/83; PULSE 87; RESP 20; TEMP 98.3; O2SAT 96
[2024-05-06 06:15] LABS: Basophils # (auto) 0.1 10 ^3/uL (0-0.2); Basophils % (auto) 1.2 % (0.0-2.0); Eosinophils # (auto) 0.1 10 ^3/uL (0-0.8); Eosinophils % (auto) 2.4 % (0.0-7.0); Hematocrit 39.7 % (41.0-53.0); Hemoglobin 12.9 g/dL (13.5-17.5); Lymphocytes # (auto) 1.8 10 ^3/uL (0.4-5.4); Lymphocytes % (auto) 31.1 % (10.0-50.0); Mean Corpuscular Hemoglobin 28.3 pg (28.0-32.0); Mean Corpuscular Hgb Conc. 32.5 g/dL (32.0-36.0); Mean Corpuscular Volume 87.1 fL (80.0-100.0); Monocytes # (auto) 0.8 10 ^3/uL (0-1.3); Neutrophils # (auto) 3.1 10 ^3/uL (1.6-8.6); Neutrophils % (auto) 52.3 % (37.0-80.0); Nucleated Red Blood Cells % 0.1 %; Platelet Count (auto) 263 10^3/uL (140-450); Red Blood Cells 4.56 10^6/uL (4.5-5.90); Red Cell Distribution Width 20.3 % (11.8-14.3); White Blood Cell 5.9 10^3/uL (4.4-10.8)
[2024-05-06 06:29] LABS: Chloride 111 mmol/L (98-107); Sodium 142 mmol/L (136-145)
[2024-05-06 06:30] LABS: Anion Gap 7 (5-15); Calcium 8.5 mg/dL (8.7-10.4); Carbon Dioxide 24 mmol/L (20-31)
[2024-05-06 06:35] LABS: BUN/Creatinine Ratio 11.4 (10.0-20.0); Blood Urea Nitrogen 8 mg/dL (9-23); Glucose 85 mg/dL (74-106)
[2024-05-06 08:00] VITALS: PULSE 82
[2024-05-06 09:29] VITALS: BP 118/73; PULSE 81; RESP 17; TEMP 98.1; O2SAT 96
[2024-05-06 09:32] VITALS: BP 124/83; PULSE 81; RESP 17; TEMP 36.7; O2SAT 96
[2024-05-06] MEDS ORDERED: InsuLIN REG 1unit/0.01ml Soln (100units/ml) ONE (16:45)
--- NOTE | 2024-05-06 17:08 | DVHPNRES ---
Progress Note Date Seen: May 06, 2024 Resident Creating Document: REYNA MONDRAGON RESIDENT Has the PT tested + for MRSA If YES, has PT been informed?: No Medical Necessity Reason Pt with a Central, PICC or Fol: No Subjective Review of Systems [place] Polanco is a 58 years old male with past medical history of recurrent DVT and pulmonary embolism, inclusion body myositis, footdrop, status post IVC filter, CHF came to the ER with a complaint of right leg swelling started 7-8 days before. Patient seen and examined at the bedside. Patient reported improvement since admission. Currently on Eliquis. Held discharge yesterday due to transportation facility. Patient is discharging to home today. Patient reports: Feels better Objective vital signs Vital Sign Date Time Temp Pulse Resp B/P (MAP) Pulse Ox O2 Delivery O2 Flow Rate FiO2 05/06/24 09:32 36.7 81 17 96 05/06/24 09:29 118/73 (88) 05/06/24 08:00 Room Air* 0 21 Total Intake and Output 05/05/24 05/05/24 05/06/24 15:00 23:00 07:00 Intake Total 825 ml 795 ml Output Total 500 ml Balance 825 ml 295 ml Examination Pt is lying on bed General Appearance: Alert, Oriented X3, Cooperative, Not in acute distress HEENT: Atraumatic, Mucous membranes moist/pink Respiratory: Clear to auscultation, Normal air movement, No added sounds Cardiovascular: Regular rate, Normal S1, Normal S2, No murmurs Abdominal: Active bowel sounds, Soft, no distention, no tenderness Extremities: Right lower extremity swelling, warm, mild tender Skin: No Significant rash, except past surgical scars Neuro: Normal speech, sensorimotor deficits none Psych/Mental Status: Mental status NL, Mood NL laboratory and microbiology Laboratory Tests 05/06/24 05:30 Test 05/06/24 05:30 Range/Units Serum Glucose 85 74-106 mg/dL Labs and/or images reviewed: Labs reviewed by me, Image(s) reviewed by me Problem List/Assessment/Plan Problem List/Assessment/Plan # Right lower extremity swelling due to acute DVT # History of recurrent DVT and PE and s/p IVC filter due to spontaneous blood clot -History of recurrent DVT and PE and s/p IVC filter due to spontaneous blood clot -Patient was on Eliquis 5 mg b.i.d. for last 1 year -Doppler scan of the lower extremity revealed nonocclusive thrombus within the right superficial femoral,and popliteal vein acute occlusive thrombus in the right greater saphenous vein in the thigh and the right common femoral vein. -CT angio of the chest revealed-There is moderate thrombus seen in the superior subsegmental branch of the right lower lobe pulmonary artery. There are additional smaller foci of thrombus seen in the subsegmental branches of the right upper lobe, right middle lobe and posterior right lower lobe pulmonary arteries. -Wells' criteria for DVT>6 -initially on heparin drip, started Eliquis 10 mg BID for the first 7 days then switch to 5 mg BID. # Lactic acidosis without sepsis. - Lactic acid trends are 3.0>3.3 - Patient was given 1 L bolus normal saline followed by IV normal saline at 100 mL/hour. - Monitor lactic acid level. 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 # steatosis - CT angio revealed- Diffuse fatty infiltration of the liver. # cholelithiasis -asymptomatic -CT angio revealed cholelithiasis -follow up lesion surgery # Morbid obesity, BMI 36.4 kg/m2 - Counseled patient regarding diet and lifestyle modification. Goals of care discussed with the patient for more than 27 minutes: Full code status Case management discussed with Dr. Bullock, patient and nurse Plan discussed with: Patient Date of Service: May 06, 2024 Billing Provider: MAURICE BULLOCK MD Common Visit Codes: 17691-ZWM/OBS DISCH DAY >30min Coding Comment Comment Attending Attestation I saw and evaluated the patient. I reviewed the residents note and agree with findings and plan as documented in the residents note except as documented below. Patient was discharged yesterday, pending transport, for full discharge summary please review discharge summary from 04/04/2024 REYNA MONDRAGON RESIDENT May 06, 2024 17:08 MAURICE BULLOCK MD May 06, 2024 18:50
== END 2024-05-06 10:56 | disposition home or self-care (01) | DRG 197 ==
LOC: ER 21:30 → EDBD 21:30 → OVERFLOW 05-03 00:13 → TELE-WESTW 05-04 03:05
PROVIDERS: ADMIT Student in an Organized Health Care Education/Training Program; ATTEND Student in an Organized Health Care Education/Training Program
DX: I82.411 Acute embolism and thrombosis of right femoral vein (principal); I26.99 Other pulmonary embolism without acute cor pulmonale; J96.01 Acute respiratory failure with hypoxia; E87.20 Acidosis, unspecified; I82.431 Acute embolism and thrombosis of right popliteal vein; G72.41 Inclusion body myositis [IBM]; I42.0 Dilated cardiomyopathy; I82.811 Embolism and thrombosis of superficial veins of right lower extremity; K76.0 Fatty (change of) liver, not elsewhere classified; I25.10 Atherosclerotic heart disease of native coronary artery without angina pectoris; K80.20 Calculus of gallbladder without cholecystitis without obstruction; E66.01 Morbid (severe) obesity due to excess calories; Z68.36 Body mass index [BMI] 36.0-36.9, adult; I50.9 Heart failure, unspecified; Z79.01 Long term (current) use of anticoagulants; Z91.199 Patient's noncompliance with other medical treatment and regimen due to unspecified reason; Z95.828 Presence of other vascular implants and grafts; Z82.49 Family history of ischemic heart disease and other diseases of the circulatory system; Z83.3 Family history of diabetes mellitus
CPT/HCPCS: 36415; 71045; 71275; 80048; 80053; 80307; 81001; 83605; 83690; 83735; 83880; 84484; 85025; 85610; 85730; 93005; 93306; 93971; G0378; J1815

== ENCOUNTER 2025-06-03 13:54 | Emergency (ER) | payer MEDICAID ==
[~2025-06-03] VITALS: Ht 170.2 cm; Wt 113.0 kg
--- NOTE | 2025-06-03 15:56 | DVH ---
Bilateral lower extremity venous duplex CLINICAL HISTORY: pain to the legs COMPARISON: US BILAT LOWER DVT on DOS: 09/30/24, US RT LOWER DVT on DOS: 05/02/24, LKNCT on DOS: 05/29/22 FINDINGS: Duplex Doppler evaluation of the deep venous systems of both lower extremities from the common femoral veins to the popliteal veins including color Doppler and spectral/pulsed waveform analysis was performed. RIGHT SIDE: DVT in the right common femoral vein and right superficial femoral vein. There is compressibility/patency of the great saphenous vein at the proximal thigh. The femoral vein demonstrates appropriate compressibility and waveform variability. The deep femoral vein demonstrates appropriate compressibility and waveform variability. The popliteal vein demonstrates appropriate compressibility and waveform variability. There is normal compressibility at the tibioperoneal trunk. LEFT SIDE: The common femoral vein demonstrates appropriate compressibility and waveform variability. There is compressibility/patency of the great saphenous vein at the proximal thigh. The femoral vein demonstrates appropriate compressibility and waveform variability. The deep femoral vein demonstrates appropriate compressibility and waveform variability. The popliteal vein demonstrates appropriate compressibility and waveform variability. There is normal compressibility at the tibioperoneal trunk. IMPRESSION: DVT right lower extremity. No DVT left lower extremity. Critical findings discussed with Dr. Benoit via phone on 06/03/2025 03:53 PM. END IMPRESSION: If clinical concern/symptoms persist or worsen, short-interval follow-up study is suggested.
[2025-06-03 16:30] VITALS: PULSE 74; RESP 15; O2SAT 91
--- NOTE | 2025-06-03 17:05 | ED.PDOC ---
History of Present Illness HPI Comments This is a 60-year-old male who comes in with chief complaint of possible blood clots in his lower extremities. The patient states that he has is currently a [place] secondary to some issues with his legs. The patient has been diagnosed with DVT is in the past in his currently on blood thinners. He denies any chest pain and shortness for breath at this time. He stated that they were concerned about his right leg so they were going to order an ultrasound but they could not get an ultrasound at the facility. Chief Complaint: Lower Extremity Time Seen by MD: 14:03 Primary Care Provider: UNK Reviewed Notes: Nurses Notes, Medications, Allergies (Allergies to penicillin) Allergies: Coded Allergies: Penicillins (Verified Allergy, Unknown, 11/07/17) Home Meds Active Scripts Hydrocodone-Acetaminophen (Hydrocodone Bitartrate/AC 10-325 mg) 1 Tab Tab, 1 TAB PO TIDP PRN for 10 Days, #30 TAB 0 Refills Prov:ELLEN MAJANO MD 10/01/24 Hydrocodone-Acetaminophen (Hydrocodone Bitartrate/AC 10-325 mg) 1 Tab Tab, 1 TAB PO Q6HP PRN for 5 Days, #20 TAB Prov:ARIEL EVANS MD 01/20/23 Reported Medications Secukinumab (Cosentyx Sensoready Pen) 150 Mg/Ml Inj, SC [id number] 05/30/22 Duloxetine HCl (Duloxetine HCl) 30 Mg Cap, 1 CAP PO DAILYPRN 05/30/22 Gabapentin (Gabapentin) 800 Mg Tab, 1 TAB PO TID 05/30/22 Apixaban Base (ELIQUIS) 5 Mg Tab, 1 TAB PO BID 05/30/22 Cyclobenzaprine HCl (Cyclobenzaprine Hydrochlo) 10 Mg Tab, 1 TAB PO TID 05/30/22 Morphine Sulfate (Morphine Sulfate) 15 Mg Tab, 1 TAB PO TID PRN for PAIN SCALE 7 THRU 10 05/30/22 Information Source: Patient Mode of Arrival: EMS Severity: Moderate Timing: Days Duration: Since onset Prehospital treatment: None Associated signs and symptoms Generalized weakness, electrolyte imbalance, DVT Past Medical History PAST MEDICAL HISTORY: CAD, PE Past Medical History (Other): DVT Surgical History (Other): Back surgery, neck surgery, right elbow surgery and knee surgery Family History Family History: Reviewed,noncontributory to illness Social History Smoker: Non-Smoker Alcohol: Occasionally Drugs: Denies Drug Use Lives In: Long Term Constitutional: denies: chills, diaphoresis, fatigue, fever, malaise, sweats, w eakness, others EENTM: denies: blurred vision, double vision, ear bleeding, ear discharge, ear drainage, ear pain, ear ringing, eye pain, eye redness, hearing loss, mouth pain, mouth swelling, nasal discharge, nose bleeding, nose congestion, nose pain, photophobia, tearing, throat pain, throat swelling, voice changes, others Respiratory: denies: cough, hemoptysis, orthopnea, SOB at rest, shortness of breath, SOB with excertion, stridor, wheezing, others Cardiovascular: denies: chest pain, dizzy spells, diaphoresis, Dyspnea on exertion, edema, irregular heart beat, left arm pain, lightheadedness, palpitations, PND, syncope, others Gastrointestinal: denies: abdomen distended, abdominal pain, blood streaked bowels, constipated, diarrhea, dysphagia, difficulty swallowing, hematemesis, melena, nausea, poor appetite, poor fluid intake, rectal bleeding, rectal pain, vomiting, others Genitourinary: denies: burning, dysuria, flank pain, frequency, hematuria, incontinence, penile discharge, penile sore, pain, testicle pain, testicle swe lling, urgency, others Neurological: denies: dizziness, fainting, headache, left sided numbness, left sided weakness, numbness, paresthesia, pre-existing deficit, right sided numbness, right sided weakness, seizure, speech problems, tingling, tremors, weakness, others Musculoskeletal: denies: back pain, gout, joint pain, joint swelling, muscle pain, muscle stiffness, neck pain, others Integumetry: denies: bruises, change in color, change in hair/nails, dryness, laceration, lesions, lumps, rash, wounds, others Allergic/Immunocompromised: denies: Difficulty Healing, Frequent Infections, Hives, Itching, others Hematologic/Lymphatic: denies: anemia, blood clots, easy bleeding, easy bruising, swollen glands, others Endocrine: denies: excessive hunger, excessive sweating, excessive thirst, excessive urination, flushing, intolerance to cold, intolerance to heat, unexplained weight gain, unexplained weight loss, others Psychiatric: denies: anxiety, bipolar disorder, depression, hopeless, panic disorder, schizophrenia, sleepless, suicidal, others Physical Exam General Appearance: Mild Distress HEENT: Normal ENT Inspection, Pharynx Normal, TMs Normal Neck: Full Range of Motion, Non-Tender, Normal, Normal Inspection Respiratory: Chest Non-Tender, Lungs Clear, No Accessory Muscle Use, No Respiratory Distress, Normal Breath Sounds Cardiovascular: No Edema, No JVD, No Murmur, No Gallop, Normal Peripheral Pulses, Regular Rate/Rhythm Breast Exam: Deferred Gastrointestinal: No Organomegaly, Non Tender, No Pulsatile Mass, Normal Bowel Sounds, Soft Genitalia: Deferred Pelvic: Deferred Rectal: Deferred Extremities: Calf tenderness (right side), Normal capillary refill, Pedal edema Musculoskeletal : Apperance: Normal Neurologic: Alert, science technicians II-XII nml as Tested, Motor Weakness, Normal Affect, Normal Mood, No Sensory Deficits Cerebellar Function: Normal Reflexes: Normal Skin: Dry, Normal Color, Warm Lymphatic: No Adenopathy Was a procedure done? Was a procedure done?: No Differential Dx Considerations may include: DVT, PE X-Ray, Labs, Meds, VS Vital Signs Date Time Temp Pulse Resp B/P (MAP) Pulse Ox O2 Delivery O2 Flow Rate FiO2 06/03/25 14:08 98.5 75 18 136/80 94 98.5 Ultrasound of the lower extremity shows DVT on the right side The patient is being discharged as he is already on blood thinners Images Reviewed?: Images reviewed and evaluated by me Time of 1ST Reevaluation: 17:04 Reevaluation 1ST: Unchanged Patient Education/Counseling: Diagnosis, Treatment, Prognosis, Need For Follow Up Family Education/Counseling: No Family Present SEPSIS Sepsis Screen Date sepsis recognized/suspect: Jun 03, 2025 Time Sepsis recognized/suspect: 1402 Recent Procedure: No On Antibiotic Therapy: No Respiratory Rate >20: No Heart Rate >90: No Temp<36 C (96.8 F) or >38.3 C: No SBP <90 or MAP <65 mmHG: No New Acute Mental Status Change: No Is the patient on CPAP, BIPAP,: No Physician Orders Bilat Lower Dvt (06/03/25 14:03) Vital Signs Date Time Temp Pulse Resp B/P (MAP) Pulse Ox O2 Delivery O2 Flow Rate FiO2 06/03/25 14:08 98.5 75 18 136/80 94 98.5 Departure 1 Departure Time of Disposition: 17:05 Impression: Primary Impression: Right leg DVT Qualified Codes: I82.501 - Chronic embolism and thrombosis of unspecified deep veins of right lower extremity Disposition: 01 HOME / SELF CARE / HOMELESS Condition: Fair Discharged With: Self Critical Care Note Critical Care Time?: No Stability Stability form required: No Heart Score Heart Score: Heart Score Response (Comments) Value History N/A 0 EKG N/A 0 Age N/A 0 Risk Factors N/A 0 Troponin N/A 0 Total 0 ARIEL EVANS MD Jun 03, 2025 17:05
[2025-06-03 19:25] VITALS: BP 141/79; PULSE 80; RESP 15; TEMP 98.4; O2SAT 93
[2025-06-03] MEDS: HYDROcodone-ACET 10/325MG TAB PO ONE (20:39)
== END 2025-06-03 21:18 | disposition home or self-care (01) ==
LOC: ER 13:54 → EDBD 13:54 → ER 21:18
DX: I82.401 Acute embolism and thrombosis of unspecified deep veins of right lower extremity (principal); I25.10 Atherosclerotic heart disease of native coronary artery without angina pectoris; Z79.899 Other long term (current) drug therapy; Z88.0 Allergy status to penicillin
CPT/HCPCS: 93970

== ENCOUNTER 2025-06-17 19:42 | Emergency (ER) | payer MEDICAID ==
[~2025-06-17] VITALS: Ht 182.9 cm; Wt 118.2 kg
[2025-06-17 19:55] VITALS: TEMP 98.3
--- NOTE | 2025-06-17 20:26 | ECG ---
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
--- NOTE | 2025-06-17 21:18 | DVH ---
CT HEAD WITHOUT CONTRAST INDICATION: ALOC COMPARISON: CT HEAD WITHOUT CONTRAST on DOS: 09/30/24 TECHNIQUE: CT of the head without intravenous contrast. RADIATION DOSE: CTDIvol: mGy, DLP: mGy*cm FINDINGS: No evidence of intracranial hemorrhage, acute infarct, extra-axial collection, mass effect, midline shift, herniation or hydrocephalus. 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 Ventricles, sulci and cisterns are normal. Martinez- white differentiation is normal.+ Visualized paranasal sinuses and mastoid air cells are clear. Soft tissues and osseous structures are unremarkable. IMPRESSION: No acute intracranial abnormality identified.
[2025-06-17 21:21] VITALS: BP 118/68; PULSE 79; RESP 15; O2SAT 91
[2025-06-17 21:50] LABS: Alanine Aminotransferase 22 U/L (7-40); Anion Gap 11 (5-15); BUN/Creatinine Ratio 22.9 (10.0-20.0); Carbon Dioxide 24 mmol/L (20-31); Glucose 96 mg/dL (74-106); Potassium 4.3 mmol/L (3.5-5.1); Sodium 143 mmol/L (136-145); Total Protein 7.4 g/dL (5.7-8.2)
[2025-06-17 21:51] LABS: Albumin 4.2 g/dL (3.2-4.8)
[2025-06-17 21:55] LABS: Alkaline Phosphatase 163 U/L (46-116); Bilirubin, Total 0.2 mg/dL (0.2-1.0); Blood Urea Nitrogen 25 mg/dL (9-23); Calcium 8.5 mg/dL (8.7-10.4); Chloride 108 mmol/L (98-107)
[2025-06-17 22:05] LABS: Lactic Acid w/Reflex 2.2 mmol/L (0.4-2.0)
[2025-06-17 22:09] LABS: Hematocrit 44.3 % (41.0-53.0); Hemoglobin 13.4 g/dL (13.5-17.5); Mean Corpuscular Hemoglobin 25.7 pg (28.0-32.0); Mean Corpuscular Volume 84.8 fL (80.0-100.0); Nucleated Red Blood Cells % 0.1 %
[2025-06-17] MEDS: SODIUM CHLORIDE 0.9% 1,000 ML IV ONE (23:09)
--- NOTE | 2025-06-17 23:11 | ED.PDOC ---
Altered Mental Status HPI Comments 60 year old male FRANCIA from [facility] presents to the ED for CC of elevated alcohol levels. Pt has been ALOC for the past hour, O2 Sat was 80% on room air, with 4L O2 2 Sat was 94%. All other VSS. Pt has aPMHx of HTN. CHF< and DVT. Pt is A&O4. EMS suspects that Pt's family possibly brought alcohol to Pt today at facility. Pt has bilateral tib/fib fracture and EMS gave 1MG narcan IV to assess for changes in mental status but have since reported no change. Pt is stable and "doesn't know why he is here. "Pt denies associated symptoms of dizziness, headache, D/V/N at this time. No other associated symptoms, modifiers, recent injuries or sick contacts present at this time. Chief Complaint: ALOC Time Seen by MD: 23:10 Primary Care Provider: UNK Reviewed Notes: Nurses Notes, Screed Person Notes, Medications, Allergies Allergies: Coded Allergies: Penicillins (Verified Allergy, Unknown, 11/07/17) Home Meds Active Scripts Hydrocodone-Acetaminophen (Hydrocodone Bitartrate/AC 10-325 mg) 1 Tab Tab, 1 TAB PO TIDP PRN for 10 Days, #30 TAB 0 Refills Prov:ELLEN MAJAON MD 10/01/24 Hydrocodone-Acetaminophen (Hydrocodone Bitartrate/AC 10-325 mg) 1 Tab Tab, 1 TAB PO Q6HP PRN for 5 Days, #20 TAB Prov:ARIEL EVANS MD 01/20/23 Reported Medications Secukinumab (Cosentyx Sensoready Pen) 150 Mg/Ml Inj, SC [id number] 05/30/22 Duloxetine HCl (Duloxetine HCl) 30 Mg Cap, 1 CAP PO DAILYPRN 05/30/22 Gabapentin (Gabapentin) 800 Mg Tab, 1 TAB PO TID 05/30/22 Apixaban Base (ELIQUIS) 5 Mg Tab, 1 TAB PO BID 05/30/22 Cyclobenzaprine HCl (Cyclobenzaprine Hydrochlo) 10 Mg Tab, 1 TAB PO TID 05/30/22 Morphine Sulfate (Morphine Sulfate) 15 Mg Tab, 1 TAB PO TID PRN for PAIN SCALE 7 THRU 10 05/30/22 Information Source: Patient, Emergency Med Personnel Mode of Arrival: EMS Severity: Moderate Timing: Hours Duration: Since onset Quality: None Associated Signs and Symptoms: None Past Medical History PAST MEDICAL HISTORY: CAD, PE Surgical History: Denies all surgeries Family History Family History: Reviewed,noncontributory to illness Social History Smoker: Non-Smoker Alcohol: Occasionally Drugs: Denies Drug Use Lives In: [facility] Constitutional: denies: chills, diaphoresis, fatigue, fever, malaise, sweats, weakness, others EENTM: denies: blurred vision, double vision, ear bleeding, ear discharge, ear drainage, ear pain, ear ringing, eye pain, eye redness, hearing loss, mouth pain, mouth swelling, nasal discharge, nose bleeding, nose congestion, nose pain, photophobia, tearing, throat pain, throat swelling, voice changes, others Respiratory: denies: cough, hemoptysis, orthopnea, SOB at rest, shortness of breath, SOB with excertion, stridor, wheezing, others Cardiovascular: denies: chest pain, dizzy spells, diaphoresis, Dyspnea on exertion, edema, irregular heart beat, left arm pain, lightheadedness, palpitations, PND, syncope, others Gastrointestinal: denies: abdomen distended, abdominal pain, blood streaked bowels, constipated, diarrhea, dysphagia, difficulty swallowing, hematemesis, melena, nausea, poor appetite, poor fluid intake, rectal bleeding, rectal pain, vomiting, others Genitourinary: denies: burning, dysuria, flank pain, frequency, hematuria, incontinence, penile discharge, penile sore, pain, testicle pain, testicle swelling, urgency, others Neurological: denies: dizziness, fainting, headache, left sided numbness, left sided weakness, numbness, paresthesia, pre-existing deficit, right sided numbness, right sided weakness, seizure, speech problems, tingling, tremors, weakness, others Musculoskeletal: denies: back pain, gout, joint pain, joint swelling, muscle pain, muscle stiffness, neck pain, others Integumetry: denies: bruises, change in color, change in hair/nails, dryness, laceration, lesions, lumps, rash, wounds, others Allergic/Immunocompromised: denies: Difficulty Healing, Frequent Infections, Hives, Itching, others Hematologic/Lymphatic: denies: anemia, blood clots, easy bleeding, easy bruising, swollen glands, others Endocrine: denies: excessive hunger, excessive sweating, excessive thirst, excessive urination, flushing, intolerance to cold, intolerance to heat, unexplained weight gain, unexplained weight loss, others Psychiatric: denies: anxiety, bipolar disorder, depression, hopeless, panic disorder, schizophrenia, sleepless, suicidal, others All Other Systems: Reviewed and Negative Physical Exam General Appearance: No Apparent Distress, Normal HEENT: Normal ENT Inspection, Pharynx Normal, TMs Normal Neck: Full Range of Motion, Non-Tender, Normal, Normal Inspection Respiratory: Chest Non-Tender, Lungs Clear, No Accessory Muscle Use, No Respiratory Distress, Normal Breath Sounds Cardiovascular: No Edema, No JVD, No Murmur, No Gallop, Normal Peripheral Pulses, Regular Rate/Rhythm Breast Exam: Deferred Gastrointestinal: No Organomegaly, Non Tender, No Pulsatile Mass, Normal Bowel Sounds, Soft Genitalia: Deferred Pelvic: Deferred Rectal: Deferred Extremities: No calf tenderness, Normal capillary refill, Normal inspection, Normal range of motion, Non-tender, No pedal edema Musculoskeletal : Apperance: Normal Neurologic: Alert, supervisor industrial arts education II-XII nml as Tested, No Motor Deficits, Normal Affect, Normal Mood, No Sensory Deficits Cerebellar Function: Normal Reflexes: Normal Skin: Dry, Normal Color, Warm Lymphatic: No Adenopathy Was a procedure done? Was a procedure done?: No Differential Diagnosis (ALOC) Differential Diagnosis: Dehydration, Hypoglycemia, Encephalopathy, Meningitis, Sepsis, Hypoxemia, Seizure, Closed Head Injury, Mass Lesion, SAH, Drug Overdose, ETOH Intoxication, Renal Failure, Other X-Ray, Labs, Meds, VS Vital Signs Date Time Temp Pulse Resp B/P (MAP) Pulse Ox O2 Delivery O2 Flow Rate FiO2 06/17/25 21:21 79 15 91 Nasal Cannula* 5 40 06/17/25 21:21 79 15 118/68 (85) 91 06/17/25 19:55 98.3 89 16 130/83 94 98.3 06/17/25 19:45 88 Lab Test 06/17/25 23:13 06/17/25 23:05 06/17/25 21:55 06/17/25 21:31 Range/Units Lactic Acid Level 2.2 *H 0.4-2.0 mmol/L Urine Color Light-yellow Yellow Urine Clarity Clear Clear Urine pH 5.0 5.0-9.0 Urine Specific [place] 1.011 1.001-1.035 Urine Protein Negative Negative Urine Ketones Negative Negative Urine Blood Negative Negative /uL Urine Nitrite Negative Negative Urine Bilirubin Negative Negative Urine Urobilinogen Normal Negative mg/dL Urine Leukocyte Esterase Negative Negative /uL Urine RBC 3 0 - 3 /hpf Urine Microscopic WBC 2 0-3 /HPF Urine Squamous Epithelial Cells None seen <5 /hpf Urine Bacteria None seen None Seen /hpf Urine Hyaline Casts Few 0 - 2 /lpf Urine Glucose Normal Normal mg/dL Urine Opiates Screen Neg NEGATIVE Urine Fentanyl Screen Neg NEGATIVE Urine Barbiturates Screen Neg NEGATIVE Urine Phencyclidine Screen Neg NEGATIVE Urine Amphetamines Screen Neg NEGATIVE Urine Benzodiazepines Screen Neg NEGATIVE Urine Cocaine Screen Neg NEGATIVE Urine Cannabinoids Screen Neg NEGATIVE White Blood Count 9.2 4.4-10.8 10^3/uL Red Blood Count 5.22 4.5-5.90 10^6/uL Hemoglobin 13.4 L 13.5-17.5 g/dL Hematocrit 44.3 41.0-53.0 % Mean Corpuscular Volume 84.8 80.0-100.0 fL Mean Corpuscular Hemoglobin 25.7 L 28.0-32.0 pg Mean Corpuscular Hemoglobin Concent 30.3 L 32.0-36.0 g/dL Red Cell Distribution Width 17.5 H 11.8-14.3 % Platelet Count 346 140-450 10^3/uL Mean Platelet Volume 7.7 6.9-10.8 fL Neutrophils (%) (Auto) 64.7 37.0-80.0 % Lymphocytes (%) (Auto) 24.1 10.0-50.0 % Monocytes (%) (Auto) 6.3 0.0-12.0 % Eosinophils (%) (Auto) 3.7 0.0-7.0 % Basophils (%) (Auto) 1.2 0.0-2.0 % Neutrophils # (Auto) 6.0 1.6-8.6 10 ^3/uL Lymphocytes # (Auto) 2.2 0.4-5.4 10 ^3/uL Monocytes # (Auto) 0.6 0-1.3 10 ^3/uL Eosinophils # (Auto) 0.3 0-0.8 10 ^3/uL Basophils # (Auto) 0.1 0-0.2 10 ^3/uL Nucleated Red Blood Cells 0.1 % POC Glucose 108 H 70-106 mg/dl Test 06/17/25 21:17 Range/Units Sodium Level 143 136-145 mmol/L Potassium Level 4.3 3.5-5.1 mmol/L Chloride Level 108 H 98-107 mmol/L Carbon Dioxide Level 24 20-31 mmol/L Anion Gap 11 5-15 Blood Urea Nitrogen 25 H 9-23 mg/dL Creatinine 1.09 0.700-1.30 mg/dL Glomerular Filtration Rate Calc 78 >90 mL/min BUN/Creatinine Ratio 22.9 H 10.0-20.0 Serum Glucose 96 74-106 mg/dL Lactic Acid Level 2.2 *H 0.4-2.0 mmol/L Calcium Level 8.5 L 8.7-10.4 mg/dL Total Bilirubin 0.2 0.2-1.0 mg/dL Aspartate Amino Transferase (AST) 38 13-40 U/L Alanine Aminotransferase (ALT) 22 7-40 U/L Alkaline Phosphatase 163 H 46-116 U/L Total Protein 7.4 5.7-8.2 g/dL Albumin 4.2 3.2-4.8 g/dL Plasma/Serum Blood Alcohol 198.3 H <10 mg/dL Current Medications Medications (Trade) Dose Ordered Sig/Prateek Route Start Time Stop Time Status Last Admin Sodium Chloride 1,000 ml @ 1,000 mls/hr Q1H ONCE IV 06/17/25 22:45 06/17/25 23:44 DC 06/17/25 23:09 X-Ray, Labs, Meds, VS Comment [place] [id number] Ph: [phone] DIAGNOSTIC IMAGING Diagnostic Imaging Report : [id number] Signed PATIENT: BRADLY PARIS ACCT: [id number] UNIT: [id number] : 1965 LOC: ER ROOM / BED: / AGE / SEX: 60 / M ADM STATUS: REG ER SERVICE 27 ORDERING PHYSICIAN: SONJA GE MD PROCEDURE(s): HWOCT - HEAD WITHOUT CONTRAST REASON: ALOC ORDER NUMBER(s): [id number], ACCESSION NUMBER(s): [id number] CT HEAD WITHOUT CONTRAST INDICATION: ALOC COMPARISON: CT HEAD WITHOUT CONTRAST on DOS: 09/30/24 TECHNIQUE: CT of the head without intravenous contrast. RADIATION DOSE: CTDIvol: mGy, DLP: mGy*cm FINDINGS: No evidence of intracranial hemorrhage, acute infarct, extra-axial collection, mass effect, midline shift, herniation or hydrocephalus. 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 Ventricles, sulci and cisterns are normal. Martinez- white differentiation is normal.+ Visualized paranasal sinuses and mastoid air cells are clear. Soft tissues and osseous structures are unremarkable. IMPRESSION: No acute intracranial abnormality identified. ATED BY: FUENTES CHAMBERS MD DICTATED DATE/TIME: 06/17/252115 SIGNED BY: FUENTES CHAMBERS MD SIGNED DATE/TIME: 06/17/252115 CC: Time of 1ST Reevaluation: 23:40 Reevaluation 1ST: Unchanged Patient Education/Counseling: Diagnosis, Treatment, Need For Follow Up Family Education/Counseling: No Family Present SEPSIS Sepsis Screen Date sepsis recognized/suspect: Jun 17, 2025 Time Sepsis recognized/suspect: 2125 Recent Procedure: No On Antibiotic Therapy: No Respiratory Rate >20: No Heart Rate >90: No Temp<36 C (96.8 F) or >38.3 C: No SBP <90 or MAP <65 mmHG: No New Acute Mental Status Change: Yes Is the patient on CPAP, BIPAP,: No Physician Orders Head Without Contrast (06/17/25 20:28) Computer Security Specialist (06/17/25 20:28) Blood Culture (06/17/25 20:28) Vital Signs Date Time Temp Pulse Resp B/P (MAP) Pulse Ox O2 Delivery O2 Flow Rate FiO2 06/17/25 21:21 79 15 91 Nasal Cannula* 5 40 06/17/25 21:21 79 15 118/68 (85) 91 06/17/25 19:55 98.3 89 16 130/83 94 98.3 06/17/25 19:45 88 Laboratory Tests Test 06/17/25 21:17 06/17/25 21:55 06/17/25 23:13 Lactic Acid Level 2.2 mmol/L (0.4-2.0) *H 2.2 mmol/L (0.4-2.0) *H White Blood Count 9.2 10^3/uL (4.4-10.8) Departure 1 Departure Time of Disposition: :30 Impression: Primary Impression: Alcohol abuse Additional Impressions: Alcohol intoxication Altered mental state Disposition: HOME / SELF CARE / HOMELESS Condition: Stable Discharged With: Self Critical Care Note Critical Care Time?: No Stability Stability form required: No Heart Score Heart Score: Heart Score Response (Comments) Value History N/A 0 EKG N/A 0 Age N/A 0 Risk Factors N/A 0 Troponin N/A 0 Total 0 I personally scribed for SONJA GE MD ([email or web address]) on 06/17/25 at 23:11. Electronically submitted by Patrica Rios ([employer]). I personally scribed for SONJA GE MD ([email or web address]) on 06/18/25 at 00:53. Electronically submitted by Patrica Rios ([employer]). SONJA GE MD Jun 17, 2025 23:11
[2025-06-17 23:23] LABS: Urine Protein, UAD Negative (Negative)
[2025-06-17 23:34] LABS: Opiate Scree,Urine Neg (NEGATIVE)
[2025-06-17 23:39] LABS: Amphetamine Screen, Urine Neg (NEGATIVE); Barbiturate Scree,Urine Neg (NEGATIVE); Benzodiazephine Screen, Urine Neg (NEGATIVE); Cannabinoid Screen, Urine Neg (NEGATIVE); Cocaine Screen, Urine Neg (NEGATIVE); Phencyclidine Screen, Urine Neg (NEGATIVE)
== END 2025-06-18 10:45 | disposition home or self-care (01) ==
LOC: EDBD 19:42 → ER 19:42
DX: F10.129 Alcohol abuse with intoxication, unspecified (principal); R41.82 Altered mental status, unspecified; Z79.899 Other long term (current) drug therapy; Z88.0 Allergy status to penicillin; Y90.9 Presence of alcohol in blood, level not specified
CPT/HCPCS: 36415; 70450; 80053; 80307; 80320; 81001; 82947; 83605; 85025; 87040; 87077; 87186; 93005; 96360; 99284; J7030; 82962